=== PATIENT | male | born 1955 | race Caucasian/White ===

== ENCOUNTER 2019-01-17 09:26 | Inpatient (IN) | payer MEDICARE, OTHER ==
[~2019-01-17] VITALS: Ht 182.9 cm; Wt 62.7 kg
[2019-01-17] MEDS ORDERED: LOPERAMIDE 2 MG (IMODIUM) TABLET PO PRN (10:45)
[2019-01-17] MEDS ORDERED: ONDANSETRON 4 MG (ZOFRAN) ORAL DISSOLVE TAB PO PRN (10:45)
[2019-01-17] MEDS ORDERED: diphenhydrAMINE 25 MG TAB (BENADRYL) PO PRN (10:45)
[2019-01-17] MEDS ORDERED: BISACODYL 10 MG SUPP (DULCOLAX) PR PRN (10:45)
[2019-01-17] MEDS ORDERED: DOCUSATE SODIUM 100 MG (COLACE) CAP PO PRN (10:45)
[2019-01-17] MEDS ORDERED: HYDROcodone/APAP 5 MG/325 MG (LORTAB) TAB PO PRN (10:45)
[2019-01-17] MEDS ORDERED: ALPRAZolam 0.25 MG (XANAX) TAB PO PRN (10:45)
[2019-01-17] MEDS ORDERED: guaiFENesin/CODEINE (ROBITUSSIN AC) 10ML UDC PO PRN (10:45)
[2019-01-17] MEDS ORDERED: LACTULOSE SYRUP 10GM/15ML (ENULOSE) 30ML UDC PO PRN (10:45)
[2019-01-17] MEDS ORDERED: FLEET ENEMA ADULT 1 EA BTL PR PRN (10:45)
[2019-01-17] MEDS ORDERED: CALCIUM CARBONATE 500 MG (TUMS) TAB.CHEW PO PRN (10:45)
[2019-01-17] MEDS ORDERED: AMIT100T2 PO (12:58)
[2019-01-17] MEDS ORDERED: MULT1TAB69 PO (12:58)
[2019-01-17] MEDS ORDERED: CARB1TAB19 PO (12:58)
[2019-01-17] MEDS ORDERED: ARMO250T6 PO (12:58)
[2019-01-17] MEDS ORDERED: ASPI-992 PO (12:58)
[2019-01-17] MEDS ORDERED: DOCU-143 PO (12:58)
[2019-01-17] MEDS ORDERED: HYDR-3812 PO (12:58)
[2019-01-17] MEDS ORDERED: BACL10TA PO (12:58)
[2019-01-17] MEDS ORDERED: CARI350T27 PO (12:58)
--- NOTE | 2019-01-17 13:55 | NUR ---
Pt admitted to room 229-1, with an admitting diagnosis of S/P Spinal fusion, Parkinson's Dx, from [facility], via w/c, accompanied by girlfriend, sister, & brother in law. SARAH CARABALLO introduced to surroundings, call light, bed controls, phone, TV, temperature control, lights, meal times, smoking policy, visitor policy, side rail policy, bathrooms and showers. Patient Rights given to patient in the handbook. SARAH CARABALLO acknowledges understanding that [facility] is not responsible for the loss or damage to any personal effects or valuables that are kept in the patients posession during their hospitalization. The following Patient Care Plans were discussed with the pt: Discharge Planning, Self Care Deficit, Impaired Mobility, Potential for fall/injury. SARAH CARABALLO acknowledges understanding of Interdisciplinary Patient Education. Patient and/or family were informed about the Rapid Response Team and its purpose. Patient received Patient Rights Booklet, which includes Privacy Act Statement and Data Collection Information Summary. Pt taken immediately to gym by PT for evaluation.
[2019-01-17 14:28] VITALS: BP 162/84
--- NOTE | 2019-01-17 14:43 | Occupational Therapy Eval ---
OT Evaluation-General/PLF Medical Diagnosis Admission Date Jan 17, 2019 at 13:55 Medical Diagnosis: s/p L5-S1 AP fusion with revision hardware Onset Date: Jan 13, 2019 Therapy Diagnosis Therapy Diagnosis: Impaired ADLs and functional mobility. Precautions Precautions/Isolations: Standard Precautions Referral Physician: Nat Fernández Reason: Activity Tolerance, Self Care, Evaluation/Treatment, Strengthening/ROM Medical History Pertinent Medical History: Parkinson's Additional Medical History Pt's PMH includes the following: Carpal tunnel surgery, deep brain stimulator, prior cervical surgery Current History Pt has had back pain over the last couple of years, he trialled conservative tx with injections prior to electing to have surgery. Pt is to have back brace on when up. Reviewed History: Yes Social History Home: Single Level Current Living Status: Significant Other Entry Into Home: Stairs Without Railing Steps Into Home: 1 Steps Inside Home: 0 Pt currently live by himself but plans to stay with his girlfriend after discharge from rehab. His girlfriend lives in a one story house with a small step at entry. ADL-Prior Level of Function SCALE: Activities may be completed with or without assistive devices. 7-Dyvucxyfxg-spllmlp completes the activity by him/herself with no assistance from a helper. 5-Set-up or Clean-up Assistance-helper sets up or cleans up; patient completes activity. [place] assists only prior to or following the activity. 4-Supervision or Touching Assistance-helper provides verbal cues and/or touching/steadying and/or contact guard assistance as patient completes activity. Assistance may be provided throughout the activity or intermittently. 3-Partial/Moderate Assistance-helper does LESS THAN HALF the effort. [place] lifts, holds or supports trunk or limbs, but provides less than half the effort. 2-Substantial/Maximal Assistance-helper does MORE THAN HALF the effort. [place] lifts or holds trunk or limbs and provides more than half the effort. 5-Nlqraywix-zsibei does ALL the effort. Patient does none of the effort to complete the activity. Or, the assistance of 2 or more helpers is required for the patient to complete the activity. If activity was not attempted, code reason: 7-Patient Refused. 9-Not Applicable-not attempted and the patient did not perform the activity before the current illness, exacerbation or injury. 10-Not Attempted due to Environmental Limitations-(lack of equipment, weather restraints, etc.). 88-Not Attempted due to Medical Conditions or Safety Concerns. Self Care: Independent Functional Cognition: Independent DME/Equipment: Bath Bench, Tub/Shower DME/Equipment Comments walker OT Current Status Subjective Pt arrived at front of hospital, OT/PT assisted pt to rehab floor. Pt agreeable to OT evaluation followed by OT/PT cotreat. Pt's family and girlfriend present during session. Mental Status/Objective Patient Orientation: Person, Place, Time, Situation Attachments: Other-See Comments (back brace) Current Glasses/Contacts: Yes (reading) Hearing Aids: No Dentures/Partials: Yes Hand Dominance: Right Upper Extremity ROM WFL, pt able to flex BUE shoulders overhead and bend arms to touch back of head. Upper Extremity Coordination impaired finger to nose test, pt's RUE grossly intact, noted decreased co ordination LUE during test. Pt arm moving between top of head and chin height when bringing finger towards nose with left hand. Upper Extremity Sensation pt reported no changes in sensation. Upper Extremity Strength 4+/5 MMT BUE Edema: none noted ADL-Treatment Eating (QC): 7 Oral Hygiene (QC): 7 Shower/Bathe Self (QC): 7 Upper Body Dressing (QC): 7 Lower Body Dressing (QC): 7 On/Off Footwear (QC): 7 Toileting Hygiene (QC): 7 Toilet Transfer (QC): 7 Other Treatments Pt able to provide information about PLOF and home set up. OT/PT cotreat secondary to increased medical complexity and skill of 2 disciplines required, that an aide is unable to perform. PT focused on mobility, LB placement and overall gross movements while OT focused on hand placement and cueing during task. Pt in therapy gym, performing functional mobility to his room using FWW as OT performed w/c follow while cueing pt for safety and UE placement. Pt then transferred to the bed, and transferred supine, then transferred back to sit EOB. Pt focused on LE during transfers while OT focused on cueing for hand placement and safety with task. At 1430, OT Digna took over OT session (with focus on ADLs) continuing cotreat with PT. Pt seated safely on EOB with PT and OT at end of session. Education OT Patient Education: Correct positioning, Energy conservation, Exercise program, Modified ADL techniques, Progress toward Goal/Update tx plan, Purpose of tx/functional activities, Safety issues, Transfer techniques Teaching Recipient: Patient Teaching Methods: Demonstration, Discussion Response to Teaching: Verbalize Understanding OT Short Term Goals Short Term Goals Time Frame: Jan 31, 2019 Upper Body Dressing(FIM): 3 Lower Body Dressing(FIM): 3 Toileting(FIM): 3 Toilet/Commode Transfer(FIM): 3 1=Demonstrate adherence to instructed precautions during ADL tasks. 2=Patient will verbalize/demonstrate understanding of assistive devices/modifica tions for ADL. 3=Patient will improve strength/tolerance for activity to enable patient to perform ADL's. OT Correction Goals Plastic Injection Mold Maker Goals Time Frame: Feb 14, 2019 Eating (QC): 6 Oral Hygiene (QC): 6 Shower/Bathe Self (QC): 5 Upper Body Dressing (QC): 6 Lower Body Dressing (QC): 6 On/Off Footwear (QC): 6 Toileting Hygiene (QC): 6 Toilet/Commode Transfer (QC): 6 Additional Goals: 1-Demonstrate ADL Tasks, 2-Verbalize Understanding, 3- ImproveStrength/Oniel 1=Demonstrate adherence to instructed precautions during ADL tasks. 2=Patient will verbalize/demonstrate understanding of assistive devices/modifications for ADL. 3=Patient will improve strength/tolerance for activity to enable patient to perform ADL's. OT Education/Plan Problem List/Assessment Assessment: Decreased Activ Tolerance, Impaired Coordination, Impaired I ADL's, Impaired Self-Care Skills Discharge Recommendations Plan/Recommendations: Continue POC Treatment Plan/Plan of Care Treatment,Training & Education: Yes Patient would benefit from OT for education, treatment and training to promote independence in ADL's, mobility, safety and/or upper extremity function for ADL's. Plan of Care: ADL Retraining, Caregiver Training, Functional Mobility, Group Exercise/Act as Ind, UE Neuromus Re-Ed/Coord Treatment Duration: Feb 14, 2019 Frequency: At least 5 of 7 days/Wk (IRF) Estimated Hrs Per Day: 1.5 hours per day Agreement: Yes Rehab Potential: Fair Time/GCodes Start Time: 13:50 ([id number]) Stop Time: 14:30 ([id number]) Total Time Billed (hr/min): 30 Billed Treatment Time 9189-5121 OT Eval [id number] Co-tx with PT 1, EVM (10 mins), FA (20mins) LESLI BABCOCK OT Jan 17, 2019 14:43 POS
[2019-01-17] MEDS ORDERED: ARMODAFINIL 250 MG PO PRN (15:00)
[2019-01-17] MEDS ORDERED: LEVODOPA PO SCH (15:00)
[2019-01-17] MEDS ORDERED: CARISOPRODOL 350 MG (SOMA) TAB PO PRN (15:00)
[2019-01-17] MEDS ORDERED: NON-FORMULARY MEDICATION 1 EA EA (Hydrocodone/Acetaminophen (Hydrocodone-Acetamin 5-325 mg PO PRN (15:00)
[2019-01-17] MEDS ORDERED: CARBIDOPA PO SCH (15:00)
[2019-01-17] MEDS ORDERED: BACLOFEN 10 MG (LIORESAL) TAB PO PRN (15:00)
[2019-01-17] MEDS ORDERED: [UNRECOGNIZED DRUG - OTHER] PO SCH (15:00)
[2019-01-17] MEDS ORDERED: NON-FORMULARY MEDICATION 1 EA EA (Carisoprodol 350 MG) PO PRN (15:00)
[2019-01-17] MEDS ORDERED: ACETAMINOPHEN 325 MG TABLET PO PRN (15:15)
--- NOTE | 2019-01-17 15:25 | NUR ---
UPDATED MED REC WITH DISCHARGE INSTRUCTIONS FROM [facility]. THERE IS NO EXT MED HX OR ANY RESULTS WHEN I SEARCHED FOR THE PATIENTS FILL HISTORY IN [facility]. I ENTERED THE MEDS JUST THEY WERE REPORTED FROM [facility]. NOTE I REMOVED THE TWO NEW MEDICATIONS STARTED AT [facility] FROM THE MED REC AT THIS TIME FOR PROPER DISCHARGE TO HOME MEDICATIONS. NEW MEDS STARTED WERE BACLOFEN 10MG Q8H PRN AND HYDROCODONE 5-325MG 1-2 Q4H PRN.
[2019-01-17] MEDS: SINEMET 25/100 (CARBIDOPA/LEVODOPA) TAB PO SCH ×3 (15:38→20:41)
--- NOTE | 2019-01-17 15:47 | Occupational Ther Daily Note ---
OT Current Status-Daily Note Subjective Pt seen on EOB with PT, pt does not rate pain but states "some" pain in back. pt agreeable to OT/ PT co-treatment. Co-treat rendered due to pt's decreased functional mobility and balance and overall complexity. OT focused on ADL function, fine motor movements, and direction following while PT focused on sitting balance and gross motor movement. ADL-Treatment Therapy Code Descriptions/Definitions Functional [place] Measure: 0=Not Assessed/NA 4=Minimal Assistance 1=Total Assistance 5=Supervision or Setup 2=Maximal Assistance 6=Modified [place] 3=Moderate Assistance 7=Complete IndependenceSCALE: Activities may be completed with or without assistive devices. 1-Pvllemyivk-aiwyzbk completes the activity by him/herself with no assistance from a helper. 5-Set-up or Clean-up Assistance-helper sets up or cleans up; patient completes activity. [place] assists only prior to or following the activity. 4-Supervision or Touching Assistance-helper provides verbal cues and/or touching/steadying and/or contact guard assistance as patient completes activity. Assistance may be provided throughout the activity or intermittently. 3-Partial/Moderate Assistance-helper does LESS THAN HALF the effort. [place] lifts, holds or supports trunk or limbs, but provides less than half the effort. 2-Substantial/Maximal Assistance-helper does MORE THAN HALF the effort. [place] lifts or holds trunk or limbs and provides more than half the effort. 8-Dkpdsoqrr-mkxuub does ALL the effort. Patient does none of the effort to complete the activity. Or, the assistance of 2 or more helpers is required for the patient to complete the activity. If activity was not attempted, code reason: 7-Patient Refused. 9-Not Applicable-not attempted and the patient did not perform the activity before the current illness, exacerbation or injury. 10-Not Attempted due to Environmental Limitations-(lack of equipment, weather restraints, etc.). 88-Not Attempted due to Medical Conditions or Safety Concerns. Eating (QC): 3 (Requires assist gathering cup and stabilizing to drink. Requires assist maintaining upright position) Oral Hygiene (QC): 4 (Requires CGA while seated EOB, pt completes toothpaste donning with cues for finger placement.) Shower/Bathe Self (QC): 3 (Assist with stabilization EOB, completes all areas other than bottoms of feet and back. CGA in stance.) Upper Body Dressing (QC): 2 (s/u, pt requires cues for initiation/ termination of task. Pt requires max A for back brace doff/ donning- increased cueing increases pt's processing time. Pt requires CGA-mod A for maintaining upright position thorughout EOB UB dressing.) Lower Body Dressing (QC): 3 (Pt able to thread BLE with min A for adjusting clothing over foot.) Toileting Hygiene (QC): 4 (CGA in stance.) Toilet Transfer (QC): 4 (CGA to standard toilet. ) on/off footwear : 2 max A Other Treatment Pt completes all ADLs in room. Pt sits EOB, requires max cues for sitting upright and mod A for stabilization upright due to decreased endurance/ fatigue. Pt's mother and significant other present. Pt's significant other provides PLOF- states he requires a clean slate/ starts over with dressing tasks when becomes "stuck," and that pt has decreased sensations to all fingertips making fine motor tasks difficult. Pt completes shirt doff/ donning, shirt wadded up and requires restart with cues. Pt able to complete ADL tasks with concise/ repeated cueing. Pt's mother and significant other provides additional cues to OT/ PT, pt demonstrates delays/ confusion of tasks at times, requiring additional cues for termination and initiation of tasks. Pt requires rest/ drink breaks throughout session. Pt returns to bed, completes log roll with assist x2 for positioning. Pt's family's questions answered of ARU expectations. Pt's family states need for bed alarm due to pt's cognition at previous facility. Pt's nurse notified of pt's family request. Pt left with significant other, mother, and nursing at end of session, all needs met, call light in reach. Education OT Patient Education: Correct positioning, Instructions don/doff splint/brace, Modified ADL techniques, Purpose of tx/functional activities, Rehab process, Transfer techniques Teaching Recipient: Patient, Family, Significant Other Teaching Methods: Demonstration, Discussion Response to Teaching: Verbalize Understanding, Return Demonstration OT Short Term Goals Short Term Goals Time Frame: Jan 31, 2019 Upper Body Dressing(FIM): 3 Lower Body Dressing(FIM): 3 Toileting(FIM): 3 Toilet/Commode Transfer(FIM): 3 1=Demonstrate adherence to instructed precautions during ADL tasks. 2=Patient will verbalize/demonstrate understanding of assistive devices/modifications for ADL. 3=Patient will improve strength/tolerance for activity to enable patient to perform ADL's. OT Element Winding Machine Tender Goals Mcfp Goals Time Frame: Feb 14, 2019 Eating (QC): 6 Oral Hygiene (QC): 6 Shower/Bathe Self (QC): 5 Upper Body Dressing (QC): 6 Lower Body Dressing (QC): 6 On/Off Footwear (QC): 6 Toileting Hygiene (QC): 6 Toilet/Commode Transfer (QC): 6 Additional Goals: 1-Demonstrate ADL Tasks, 2-Verbalize Understanding, 3- ImproveStrength/Oniel 1=Demonstrate adherence to instructed precautions during ADL tasks. 2=Patient will verbalize/demonstrate understanding of assistive devices/modifications for ADL. 3=Patient will improve strength/tolerance for activity to enable patient to perform ADL's. OT Education/Plan Problem List/Assessment Assessment: Decreased Activ Tolerance, Decreased Safety Aware, Decreased UE Strength Discharge Recommendations Plan/Recommendations: Continue POC Treatment Plan/Plan of Care Treatment,Training & Education: Yes Patient would benefit from OT for education, treatment and training to promote independence in ADL's, mobility, safety and/or upper extremity function for ADL's. Plan of Care: ADL Retraining, Caregiver Training, Functional Mobility, Group Exercise/Act as Ind, UE Neuromus Re-Ed/Coord Treatment Duration: Feb 14, 2019 Frequency: At least 5 of 7 days/Wk (IRF) Estimated Hrs Per Day: 1.5 hours per day Agreement: Yes Rehab Potential: Fair Time/GCodes Start Time: 14:30 Stop Time: 15:35 Total Time Billed (hr/min): 65 Billed Treatment Time 1, ADL 4 (65) OT/ PT cotreatment throughout session. Co-treat rendered due to pt's decreased functional mobility and balance and overall complexity. OT focused on ADL fu nction, fine motor movements, and direction following while PT focused on sitting balance and gross motor movement. SANYA SMALL OTR Jan 17, 2019 15:47 POS
--- NOTE | 2019-01-17 15:51 | Physical Therapy Evaluation ---
PT Evaluation-General Medical Diagnosis Admission Date Jan 17, 2019 at 13:55 Medical Diagnosis: s/p L5-S1 AP fusion with revision hardware Onset Date: Jan 13, 2019 Therapy Diagnosis Therapy Diagnosis: impaired:coordination, strength, balance, activity ana Precautions Precautions/Isolations: Fall Prevention, Standard Precautions Weight Bear Status Right Lower Extremity: Right Full Weight Bearing Left Lower Extremity: Left Full Weight Bearing Referral Physician: Nat Reason for Referral: Evaluation/Treatment Medical History Pertinent Medical History: Parkinson's Additional Medical History Carpal tunnel surgery, deep brain stimulator, prior cervical surgery Reviewed History: Yes Social History Home: Single Level Current Living Status: Significant Other Entry Into Home: Stairs Without Railing PT Steps Into Home: 1 PT Steps Inside Home: 0 Prior Prior Level of Function SCALE: Activities may be completed with or without assistive devices. 3-Ahqihlkojp-oogfnka completes the activity by him/herself with no assistance from a helper. 5-Set-up or Clean-up Assistance-helper sets up or cleans up; patient completes activity. Elwood assists only prior to or following the activity. 4-Supervision or Touching Assistance-helper provides verbal cues and/or touching/steadying and/or contact guard assistance as patient completes activity. Assistance may be provided throughout the activity or intermittently. 3-Partial/Moderate Assistance-helper does LESS THAN HALF the effort. Elwood lifts, holds or supports trunk or limbs, but provides less than half the effort. 2-Substantial/Maximal Assistance-helper does MORE THAN HALF the effort. Elwood lifts or holds trunk or limbs and provides more than half the effort. 7-Gqvofwqiq-iwbqls does ALL the effort. Patient does none of the effort to complete the activity. Or, the assistance of 2 or more helpers is required for the patient to complete the activity. If activity was not attempted, code reason: 7-Patient Refused. 9-Not Applicable-not attempted and the patient did not perform the activity before the current illness, exacerbation or injury. 10-Not Attempted due to Environmental Limitations-(lack of equipment, weather restraints, etc.). 88-Not Attempted due to Medical Conditions or Safety Concerns. Bed Mobility: 6 Transfers (B,C,W/C): 6 Gait: 6 Stairs: 6 Indoor Mobility (Ambulation): Independent Stairs: Independent Prior Devices Use: Walker per pt family: pt was indep with everything prior to the back pain onset. following the onset of pain the pt required help to get up and out of bed and get started with motions but the pt was indep with all mobility and transfers as he "got loose". Pt would use a FWW early in the day and then also stop using the FWW as he was up for a little bit. According to family, pt is a poor historian. PLOF gathered from family information. PT Evaluation-Current Subjective pt received from car and agrees to therapy. pt reports 7/10 pain in his back. This will be a co-treat with OT secondary to pt's need for 2 skilled therapist to coordinate UE & LE functional activities and to maintain balance while performing functional activities and mobility. pt in bed post-tx with call light, room phone, tray table in reach with RN present and all needs met. Pt has sister and brother in-law and his girlfriend present for entire evaluation. Pt/Family Goals to get back home and do things on his own Objective Patient Orientation: Person, Unable to Assess, Place Problem Solving: Poor ROM/Strength ROM Lower Extremities WFL Strength Lower Extremities B/L hip flexion 5/5 B/L knee flexion 4/5 R knee extension 4/5 L knee extension 4-/5 Pt has difficulty following directions for accurate MMT Integumentary/Posture Integumentary see nursing notes Bowel Incontinence: No Bladder Incontinence: Yes Neuromuscular (Tone, Coordination, Reflexes) Slight increase in tone in B/L LE in hip flexors, knee flexors. Sensory Vision: Wears Glasses (reading glasses) Hearing: Functional Hand Dominance: Right Sensation Right Upper Extremit: Impaired Sensation Left Upper Extremity: Impaired Sensation Up. Extremities pt girlfriend reports pt lost sensation in B/L finger tips Sensation Right Lower Extremit: Intact Sensation Left Lower Extremity: Intact Transfers Roll Left to Right (QC): 3 (Eboni) Sit to Lying (QC): 2 (modA) Lying to Sitting/Side of Bed(Q: 3 (max-modA) Sit to Stand (QC): 3 (Eboni) Chair/Fcp-ym-Djsmj Xfer(QC): 3 (Eboni) Car Transfer (QC): 3 (Eboni) car transfer required extra time for instruction and positioning. sit<->supine required extra time for instruction of log roll and assist which pt has difficulty following sequence Gait Does the Patient Walk?: Yes Distance: 8=839-92 ft Walk 10 feet (QC): 3 (modA) Walk 50 ft with 2 Turns(QC): 3 (modA) Walk 150 ft (QC): 88 Walking 10ft/uneven surface-QC: 3 (modA) Distance: 120' Gait Assistive Device: FWW Comments/Gait Description pt has very narrow JACKIE and demonstrates a scissor gait with multiple large cross overs. Pt has very little awareness for safety while ambulating allowing the FWW to get too far infront of him, not using FWW to turn, and letting go of FWW all together. Pt has a posterior lean with multiple large LOB. pt lacks heel contact on the RLE and lacks heel first contact on the LLE. Pt lacks TKE in the RLE. Wheelchair Training Does the Pt Use a Wheelchair?: No Stairs 1 Step (curb) (QC): 3 (modA) 4 Steps (QC): 88 Assistive Device: Walker 12 Steps (QC): 88 pt very unstable and unsafe and unaware of safety problems Balance Sitting Static: Fair Sitting Dynamic: Fair Standing Static: Poor Standing Dynamic: Poor Picking up an Object (QC): 3 (modA) Treatment pt performed transfer training, toilet transfer, balance training, bed mobility training, skilled ambulation training, functional LE strengthening (seated 10reps: LAQs, hip flexion), and education PT assisted in balance control while OT accessed ADL's and dressing and PT assisted with LE placement for transfer training and ambulation. OT assisted balance control and UE positioning for transfers and bed mobility. Assessment/Needs pt has very impaired coordination B/L UE & LE from testing today. Pt has poor balance and poor awareness of position as pt slouches down in the bed with a high amount of posterior lean. Pt has little awareness of these impairments. Pt is impulsive and tends to move before he is in a correct position and does not maintain a safe position for balance and mobility. Pt is a high fall risk at this time. Pt family notes that the mental fog he is in is new and they believe is related to the medication from his recent surgery. Rehab Potential: Guarded PT Short Term Goals Short Term Goals Time Frame: Jan 24, 2019 Gait Distance Comment: 250' Gait Assistive Device: FWW (CGA) PT Grain Wafer Machine Operator Goals Grain Wafer Machine Operator Goals PT Grain Wafer Machine Operator Goals Time Frame: Feb 07, 2019 Sit to Lying (QC): 4 Lying-Sitting on Side/Bed(QC): 4 Sit to Stand (QC): 4 Roll Left to Right (QC): 4 Chair/Cvs-ke-Fqewr Xfer(QC): 4 Car Transfer (QC): 4 Does the Patient Walk: Yes Distance: 350' Walk 10 feet (QC): 4 Walk 10ft-Uneven Surface(QC): 4 Walk 50ft with 2 Turns (QC): 4 Walk 150 ft (QC): 4 Gait Assistive Device: FWW 1 Step (curb) (QC): 4 4 Steps (QC): 4 Picking up an Object (QC): 4 (CGA) PT Plan Problem List Problem List: Activity Tolerance, Functional Strength, Safety, Balance, Gait, Transfer, Bed Mobility, ROM Treatment/Plan Treatment Plan: Continue Plan of Care Treatment Plan: Bed Mobility, Concurrent Therapy, Education, Functional Activity Oniel, Functional Strength, Group Therapy, Gait, Safety, Therapeutic Exercise, Transfers Treatment Duration: Feb 07, 2019 Frequency: At least 5 of 7 days/Wk (IRF) Estimated Hrs Per Day: 1.5 hours per day Patient and/or Family Agrees t: Yes Safety Risks/Education Patient Education: Gait Training, Transfer Techniques, Steps, Reviewed Precautions, Correct Positioning, Reviewed Don/Doff Brace, Safety Issues Teaching Recipient: Patient, Family Teaching Methods: Demonstration, Discussion Response to Teaching: Reinforcement Needed Discharge Recommendations Plan pt will perform bed mobility training, transfer training, skilled ambulation training, balance training, functional LE strengthening/endurance exercises, and education Therapy Discharge Recommendati: Other, See Comments (home with girlfriend) Time/GCodes Time In: 1400 Time Out: 1530 Total Billed Treatment Time: 90 Total Billed Treatment [id number] was PT eval [id number] was co-treat with OT. PT assisted balance while OT accessed ADL's/self care/dressing. OT assisted balance while PT accessed mobility/transfers/ambulation 1 visit EVM 10' (1) EX 20' (1) GT 15' (1) FA 45' (3) MARY ALEXIS PT Jan 17, 2019 15:51 POS
[2019-01-17 16:00] VITALS: BP 137/89
[2019-01-17] MEDS: HYDROcodone/APAP 5 MG/325 MG (LORTAB) TAB PO PRN (16:00)
--- NOTE | 2019-01-17 16:05 | ST Cognitive Linguistic Eval ---
Speech Evaluation-General Medical Diagnosis s/p L5-S1 AP fusion with revision hardware Onset Date: Jan 13, 2019 Therapy Diagnosis Therapy Diagnosis: Cognitive-communication Referral Referring Physician: Dr. Johns Medical History Pertinent Medical History: Parkinson's Reviewed History: Yes Social History Current Living Status: Significant Other Speech PLF-Current Status Prior Level of Function Patient lived at home with his significant other where he received assistance as needed. Subjective Patient was pleasant and cooperative with the cognitive assessment. Language Eval: Auditory Comprehends Simple Yes/No Ques: Functional Indent/Objects Multiple Parra: Functional Ident/Pics in Multiple Parra: Functional Follows 1-Step Commands: Mild Follows Complex Directions: Moderate Follows General Conversations: Mild Language Eval: Verbal Language Completes Spontaneous Greeting: Functional Produces Auto, Serial Info: Functional Imitates Simple Words/Phrases: Mild Word Finding: Mild Requests Basic Needs: Functional States Basic Personal Info: Functional Expresses Complex Ideas: Moderate Objective Cognitive Domain Attention: WNL Memory: Moderate Problem Solving: Mild Executive Functions: Moderate Visuospatial Skills: Moderate Composite Severity Rating: Moderate Clock Drawing Severity Rating: Moderate Objective Formal/Standardized Tests [facility] Status ([facility]) Results 11/30, Moderate dementia range of function Oral Motor/Speech Production Patient exhibits reduced rate of speech, intelligibility is grossly within normal range of function Impression The patient is a pleasant 63 year old male who was admitted to the ARU s/p spinal surgery. Patient also has a Parkinson's diagnosis. The patient was given the SLUMS at bedside with a score of 11/30 obtained. This score falls in the moderately low range of cognitive level of function. The patient's family reports his cognitive function has been off since his surgery. Patient will receive skilled ST services for cognitive function with focus on improving safety awareness and independence. Speech Patient Assess Expression of Ideas/Wants: Frequently (2) Understanding Verbal Content: Sometimes Understands(2) Brief Interview-Mental Status: Yes Repetition of Three Words: One (1) Temporal Orientation: Year: Correct (3) Temporal Orientation: Month: Accurate within 5 days(2) Temporal Orientation: Day: Correct (1) Recall : Wear to say "Sock": No, could not recall (0) Recall : Color: No, could not recall (0) Recall : Bed: No, could not recall (0) Memory/Recall Ability: Current season, That he or she is in a hsp/hsp unit Speech Short Term Goals Short Term Goals Short Term Goals 1) The patient will complete memory tasks related to his daily needs at 90% or greater given minimal cues. 2) The patient will complete problem solving tasks related to his daily needs at 90% or greater given minimal cues. 3) The patient will complete safety awareness tasks related to his daily needs at 90% or greater given minimal cues. Speech Site Safety Representative Goals Retirement Goals Patient will improve cognitive-communication necessary for safety and daily living tasks with minimal assist. Speech-Plan Patient/Family Goals Patient/Family Goals: The patient plans on returning home with his significant other post rehab. Treatment Plan Speech Therapy Treatment Plan: Continue Plan of Care Patient will receive skilled ST services for cognitive function. Treatment Duration: Jan 29, 2019 Frequency: 5 times per week Estimated Hrs Per Day: .5 hour per day Rehab Potential: Fair Barriers to Learning: Patient has moderate deficits in cognitive function Pt/Family Agrees to Plan: Yes Safety Risks/Education Teaching Recipient: Patient, Family, Significant Other Teaching Methods: Discussion Response to Teaching: Verbalize Understanding, Reinforcement Needed Education Topics Provided: Safety within his room and communication of wants/needs. Time Speech Therapy Time In: 15:45 Speech Therapy Time Out: 16:00 Total Billed Time: 15 Billed Treatment Time 1, SPSNDCOMP YVON Medel Jan 17, 2019 16:05 POS
--- NOTE | 2019-01-17 16:31 | PM&R Post Admission Assessment ---
PM&R HP Date of Visit: Jan 17, 2019 Time of Visit: 16:00 History of Present Illness CC: Debility following lumbar spine surgery POD # 3 with history of severe Parkinson's with brain stimulator placement 14 years ago. HPI: This is a 63yoWM pt who previously saw Dr. Maximilian Dan who presented to inpatient rehab after severe debility with urinary retention and other Parkinson's related complications following an extensive lumbar spine surgery by Dr. Stoll POD # 3. He recently stopped smoking and is ordinarily able to navigate at home, does have a girlfriend and she is needing the pt to become more independent prior to returning home in order to become successful. He does have a high risk for falls anyways from Parkinson's and that definitely needs to be avoided considering the extensiveness of the lumbar spine surgery. His bowels are moving on his scheduled laxatives and he is beginning to eat more and urinary retention will be managed with in and out caths and we will be consulting urology. Patient appears to have early signs of cognitive decline from Parkinson's and given the fact his SLUMS score is 11/30 will need to monitor this and confirm this after he is further out from surgery and narcotic exposure to see if it improves. Past Zckvgan-Eghxci-Rrytoa Hx Past Med/Social Hx: Reviewed Nursing Past Med/Soc Hx, Reviewed and Corrections made Patient Social History Marrital Status: cohabiting Employed/Student: unemployed Smoking Status: Current Everyday Smoker Recent Foreign Travel: No Contact w/other who traveled: No Recent Infectious Disease Expo: No Past Medical History Surgeries: Orthopedic Brain stimulator 14 yrs ago Cardiac: High Cholesterol Neurological: Parkinson's Disease Gastrointestinal: Gastroesophageal Reflux, Pancreatitis Musculoskeletal: Arthritis, Chronic Back Pain Prior Level of Function Bed Mobility: 6 Transfers: 6 Gait: 6 Stairs: 6 Indoor Mobility (Ambulation): Independent Stairs: Independent Prior Devices Use: Walker Self Care: Independent Functional Cognition: Independent Current Level of Fuctioning Roll Left to Right: 3 (Eboni) Sit to Lyin (modA) Lying to Sitting/Side of Bed: 2 (max-modA) Sit to Stand: 3 (Eboni) Chair/Boa-kp-Fwldo Xfer: 3 (Eboni) Car Transfer: 3 (Eboni) Does the Patient Walk: Yes Distance: 2=824-49 ft Walk 10 feet: 2 (modA) Walk 50 ft with 2 Turns: 2 (modA) Walk 150 ft: 88 Walking 10ft on uneven surface: 2 (modA) Gait Assistive Device: FWW Does the Pt Use a Wheelchair: No 1 Step (curb): 2 (modA) 4 Steps: 88 12 Steps: 88 Picking up an Object: 2 (modA) Eatin (Requires assist gathering cup and stabilizing to drink. Requires assist maintaining upright position) Oral Hygiene: 4 (Requires CGA while seated EOB, pt completes toothpaste donning with cues for finger placement.) Shower/Bathe Self: 3 (Assist with stabilization EOB, completes all areas other than bottoms of feet and back. CGA in stance.) Upper Body Dressin (s/u, pt requires cues for initiation/ termination of task. Pt requires max A for back brace doff/ donning- increased cueing increases pt's processing time. Pt requires CGA-mod A for maintaining upright position thorughout EOB UB dressing.) Lower Body Dressin (Pt able to thread BLE with min A for adjusting clothing over foot.) On/Off Footwear: 7 Toileting Hygiene: 4 (CGA in stance.) Toilet Transfer: 4 (CGA to standard toilet. ) PM&R Allergy/Meds/Data Review Allergies Coded Allergies: No Known Drug Allergies (Unverified , 01/17/19) Home Medications Scheduled Amitriptyline HCl (Amitriptyline HCl), 100 MG PO HS, (Reported) Carbidopa/Levodopa (Carbidopa-Levodopa 25-100 Tab), 0.5 TAB PO Q3H, (Reported) Docusate Sodium (Colace), 100 MG PO DAILY, (Reported) Multivitamin (Multivitamins), 1 TAB PO DAILY, (Reported) Scheduled PRN Armodafinil (Armodafinil), 250 MG PO DAILY PRN for DROWSINESS, (Reported) Aspirin/Acetaminophen/Caffeine (Excedrin Extra Strength Caplet), 1 TAB PO Q6H PRN for PAIN-MILD (1-4), (Reported) Carisoprodol (Carisoprodol), 350 MG PO Q6H PRN for MUSCLE SPASMS, (Reported) Current Medications Current Medications Reviewed Review of Systems Constitutional: see HPI, dizziness, malaise, weakness EENTM: no symptoms reported Respiratory: no symptoms reported Cardiovascular: no symptoms reported Gastrointestinal: no symptoms reported Genitourinary: other (retention) Musculoskeletal: back pain Skin: no symptoms reported Psychiatric/Neurological: Anxiety, Depressed All Other Systems Reviewed Negative Unless Noted: Yes Physical Exam Physical Exam Vital Signs Vital Signs - First Documented 01/17/19 14:28 Temp 37.6 Pulse 101 Resp 16 B/P (MAP) 162/84 Pulse Ox 97 O2 Delivery Room Air Capillary Refill : Height, Weight, BMI Height: '" Weight: lbs. oz. kg; 19.84 BMI Method: General Appearance: No Apparent Distress, WD/WN, Chronically ill, Thin Eyes: Bilateral Eye Normal Inspection, Bilateral Eye PERRL HEENT: PERRL/EOMI, Normal ENT Inspection, Pharynx Normal Neck: Full Range of Motion, Normal Inspection, Non Tender, Supple, Carotid Bruit Respiratory: Chest Non Tender, Lungs Clear, Normal Breath Sounds, No Accessory Muscle Use, No Respiratory Distress Cardiovascular: Regular Rate, Rhythm, No Edema, No Gallop, No JVD, No Murmur, Normal Peripheral Pulses Gastrointestinal: Normal Bowel Sounds, No Organomegaly, No Pulsatile Mass, Non Tender, Soft Back: Decreased Range of Motion Extremity: Normal Capillary Refill, Normal Inspection, Normal Range of Motion (rigidity noted all extremities), Non Tender, No Calf Tenderness, No Pedal Edema Neurologic/Psychiatric: Alert, Oriented x3, No Motor/Sensory Deficits, senior linux engineer II- XII Norm as Tested, Depressed Affect, Motor Weakness (generalized) Skin: Normal Color, Warm/Dry Lymphatic: No Adenopathy PM&R Medical Assessment & Plan REHAB/MEDICAL ASSESSMENT AND PLAN: REHAB IMPAIRMENT GROUP: Lumbar spondylosis ETIOLOGIC DIAGNOSIS: Lumbar spine surgery due to neurological deficit, severe Parkinson's with history of brain stimulator The comorbidities that impact the patients function and/or functional outcome by: Severe Parkinson's with brain stimulator 14 years ago current smoking with cognitive deficit noted REHAB PLAN: The patient is being admitted to our comprehensive inpatient rehabilitation facility and can tolerate the intensity of service consisting of at least: 180 minutes of therapy a day, 5 out of 7 days a week Rehab treatment will consist of: Physical therapy will focus on ambulation with assistive devices for fall risk prevention from surgery deficit and severe Parkinson's and occupational therapy will focus on regaining independent ADLs and fall risk prevention, speech therapy work on cognition improvement in memory The patient/family has a good understanding of our discharge process and will benefit from an interdisciplinary inpatient rehabilitation program. The patient has potential to make improvement and is in need of at least two of the following multidisciplinary therapies including but not limited to physical, occupational, speech, and prosthetics and orthotics. Additionally the patient will need services from respiratory, nutritional services, wound care, psychology, etc. (Customize this to each patient). Given the patients complex condition and risk of further medical complications, rehabilitation services cannot be safely or effectively provided at a lower level of care such as a [place] [facility] facility. BARRIERS TO DISCHARGE: Ability to make decisions of his own and fall risk prevention ESTIMATED LOS: 7 days DISPOSITION: Home with admeasurer RELEVANT CHANGES SINCE PREADMISSION SCREENING: I have compared the patients medical and functional status at the time of the preadmission screening and there are: no changes PROGNOSIS: Good REHABILITATION GOALS: 1. Regain ability to take care of himself at home with ADLs and ambulation 2. Reside at home safely alone with admeasurer not available 3. Pain control All the above goals were reviewed with the patient and he/she is in agreement. By signing this document, I acknowledge that I have personally performed a full physical examination on this patient within 24 hours of admission to this inpatient rehabilitation facility and have determined the patient to be able to tolerate the above course of treatment at an intensive level for a reasonable period of time. I will be completing a detailed individualized Plan of Care for this patient by day #4 of the patients stay based upon the Preadmission Screen, the Post-Admission Evaluation, and the therapy evaluations. Admission Dx/Comorbidities: (1) Radiculopathy, lumbar region ICD Codes: M54.16 - Radiculopathy, lumbar region (2) Parkinsons ICD Codes: G20 - Parkinson's disease (3) Parkinson's disease with use of electrical brain stimulation ICD Codes: G20 - Parkinson's disease (4) COPD (chronic obstructive pulmonary disease) ICD Codes: J44.9 - Chronic obstructive pulmonary disease, unspecified (5) Smoker ICD Codes: F17.200 - Nicotine dependence, unspecified, uncomplicated (6) GERD (gastroesophageal reflux disease) ICD Codes: K21.9 - Gastro-esophageal reflux disease without esophagitis (7) Urinary retention ICD Codes: R33.9 - Retention of urine, unspecified (8) Constipation ICD Codes: K59.00 - Constipation, unspecified (9) Chronic pain ICD Codes: G89.29 - Other chronic pain (10) Cognitive deficit due to Parkinson's disease ICD Codes: F06.8 - Other specified mental disorders due to known physiological condition; G20 - Parkinson's disease (11) Risk for falls ICD Codes: Z91.81 - History of falling (12) Moderately thin body habitus in adult HARRISENMANUEL DO Jan 17, 2019 16:30 POS
--- NOTE | 2019-01-17 18:55 | NUR ---
Pt states that he has had his flu vaccine this year, that he, "gets it every year." Pt is unsure of pneumonia vaccine, states to ask his girlfriend tomorrow when she is here
--- NOTE | 2019-01-17 19:10 | NUR ---
Bedside report received from SHANTA ROJAS, assume care of pt
[2019-01-17] MEDS: AMITRIPTYLINE 50 MG (ELAVIL) TAB PO SCH (20:40)
--- NOTE | 2019-01-17 20:41 | NUR ---
pt refused Senokot & miralax, up with 1 person assist up & walker
--- NOTE | 2019-01-17 20:43 | NUR ---
Pt states that he is a DNR, when asking admission questions. Pt's sister states that they have talked about this, & he has told her this, over & over again." Notified Dr. Johns, & rec'd orders.
[2019-01-17] MEDS: POLYETHYLENE GLYCOL 17 GM (MIRALAX) PACK PO SCH (20:45)
[2019-01-17] MEDS: SENNA W/DOCUSATE (SENOKOT S) TABLET PO SCH (20:45)
[2019-01-17] MEDS ORDERED: NON-FORMULARY MEDICATION 1 EA EA (Amitriptyline HCl 100 MG) PO SCH (21:00)
--- NOTE | 2019-01-17 21:00 | NUR ---
pt states do not wake me if i am asleep for Sinemet tonight
[2019-01-18] MEDS: SINEMET 25/100 (CARBIDOPA/LEVODOPA) TAB PO SCH ×8 (00:05→21:05)
[2019-01-18] MEDS: HYDROcodone/APAP 5 MG/325 MG (LORTAB) TAB PO PRN ×3 (02:48→18:10)
--- NOTE | 2019-01-18 02:48 | NUR ---
c/o back pain level 7/10 on numeric scale, Lortab 5 2 tabs given
--- NOTE | 2019-01-18 03:30 | NUR ---
resting quietly in bed, pain level 0/10 flacc scale
[2019-01-18 05:32] VITALS: BP 131/84
[2019-01-18] MEDS: MULTIVIT W/MINERALS TAB (THERAGRAN M) PO SCH (06:18)
[2019-01-18 06:40] LABS: BASOPHILS % (AUTO) 0 % (0-10); EOSINOPHILS # (AUTO) 0.2 10^3/uL (0.0-0.3); EOSINOPHILS % (AUTO) 3 % (0-10); HEMATOCRIT 34 % (40-54); HEMOGLOBIN 11.1 G/DL (13.3-17.7); LYMPHOCYTES # (AUTO) 1.6 X 10^3 (1.0-4.0); LYMPHOCYTES % (AUTO) 26 % (12-44); MEAN CORPUSCULAR HEMOGLOBIN 32 PG (25-34); MEAN CORPUSCULAR HGB CONC 33 G/DL (32-36); MEAN CORPUSCULAR VOLUME 97 FL (80-99); MEAN PLATELET VOLUME 10.3 FL (7.4-10.4); MONOCYTES # (AUTO) 0.9 X 10^3 (0.0-1.0); MONOCYTES % (AUTO) 15 % (0-12); NEUTROPHILS # (AUTO) 3.6 X 10^3 (1.8-7.8); NEUTROPHILS % (AUTO) 56 % (42-75); PLATELET COUNT 233 10^3/uL (130-400); RED CELL DISTRIBUTION WIDTH 12.7 % (10.0-14.5); WHITE BLOOD COUNT 6.4 10^3/uL (4.3-11.0)
[2019-01-18 07:06] LABS: ALANINE AMINOTRANSFERASE 7 U/L (0-55); ALBUMIN 3.6 GM/DL (3.2-4.5); ALKALINE PHOSPHATASE 84 U/L (40-136); BILIRUBIN,TOTAL 0.6 MG/DL (0.1-1.0); BUN/CREATININE RATIO 20; CALCIUM 9.5 MG/DL (8.5-10.1); CARBON DIOXIDE 23 MMOL/L (21-32); CHLORIDE 99 MMOL/L (98-107); CREATININE SERUM 0.69 MG/DL (0.60-1.30); GFR ESTIMATED > 60; GLUCOSE 99 MG/DL (70-105); POTASSIUM 3.7 MMOL/L (3.6-5.0); SODIUM 133 MMOL/L (135-145); TOTAL PROTEIN 6.1 GM/DL (6.4-8.2)
--- NOTE | 2019-01-18 07:08 | NUR ---
bedside report given to OWEN ROJAS
[2019-01-18] MEDS: SENNA W/DOCUSATE (SENOKOT S) TABLET PO SCH ×2 (08:59→21:05)
[2019-01-18] MEDS: POLYETHYLENE GLYCOL 17 GM (MIRALAX) PACK PO SCH ×2 (09:00→21:05)
[2019-01-18] MEDS: DOCUSATE SODIUM 100 MG (COLACE) CAP PO SCH (09:03)
--- NOTE | 2019-01-18 12:03 | PM&R Progress Note ---
Subjective HPI/CC On Admission Date Seen by Provider: Jan 18, 2019 Time Seen by Provider: 11:30 Subjective/Events-last exam Slept well last night Third Rail Installer at the bedside Sister will leave for [facility] tomorrow BM regular No urinary retention Walked with 1 person assist Conferred with RN Reviewed therapy notes Checked meds and labs Review of Systems General: Fatigue Musculoskeletal: back pain Neurological: Confusion Objective Exam Vital Signs Vital Signs Date Time Temp Pulse Resp B/P (MAP) Pulse Ox O2 Delivery O2 Flow Rate FiO2 01/19/19 09:00 Room Air 01/19/19 06:16 36.9 90 18 134/79 (97) 97 Capillary Refill : General Appearance: No Apparent Distress, WD/WN, Chronically ill, Thin HEENT: PERRL/EOMI, Normal ENT Inspection, Pharynx Normal Neck: Full Range of Motion, Normal Inspection, Non Tender, Supple, Carotid Bruit Respiratory: Chest Non Tender, Lungs Clear, Normal Breath Sounds, No Accessory Muscle Use, No Respiratory Distress Cardiovascular: Regular Rate, Rhythm, No Edema, No Gallop, No JVD, No Murmur, Normal Peripheral Pulses Gastrointestinal: Normal Bowel Sounds, No Organomegaly, No Pulsatile Mass, Non Tender, Soft Back: Decreased Range of Motion Extremity: Normal Capillary Refill, Normal Inspection, Normal Range of Motion (rigidity noted all extremities), Non Tender, No Calf Tenderness, No Pedal Edema Neurologic/Psychiatric: Alert, Oriented x3, No Motor/Sensory Deficits, sterilization tech II- XII Norm as Tested, Depressed Affect, Motor Weakness (generalized) Skin: Normal Color, Warm/Dry Lymphatic: No Adenopathy Results/Procedures Lab Patient resulted labs reviewed. FIM Transfers Therapy Code Descriptions/Definitions Functional [place] Measure: 0=Not Assessed/NA 4=Minimal Assistance 1=Total Assistance 5=Supervision or Setup 2=Maximal Assistance 6=Modified [place] 3=Moderate Assistance 7=Complete IndependenceSCALE: Activities may be completed with or without assistive devices. 1-Kotvlfewyk-lmzouji completes the activity by him/herself with no assistance from a helper. 5-Set-up or Clean-up Assistance-helper sets up or cleans up; patient completes activity. [place] assists only prior to or following the activity. 4-Supervision or Touching Assistance-helper provides verbal cues and/or touching/steadying and/or contact guard assistance as patient completes activity . Assistance may be provided throughout the activity or intermittently. 3-Partial/Moderate Assistance-helper does LESS THAN HALF the effort. [place] lifts, holds or supports trunk or limbs, but provides less than half the effort. 2-Substantial/Maximal Assistance-helper does MORE THAN HALF the effort. [place] lifts or holds trunk or limbs and provides more than half the effort. 1-Fuuovdled-eejzez does ALL the effort. Patient does none of the effort to complete the activity. Or, the assistance of 2 or more helpers is required for the patient to complete the activity. If activity was not attempted, code reason: 7-Patient Refused. 9-Not Applicable-not attempted and the patient did not perform the activity before the current illness, exacerbation or injury. 10-Not Attempted due to Environmental Limitations-(lack of equipment, weather restraints, etc.). 88-Not Attempted due to Medical Conditions or Safety Concerns. Roll Left to Right (QC): 3 (Eboni) Sit to Lying (QC): 2 (modA) Sit to Stand (QC): 3 (Eboni) Chair/Nrw-vw-Ruzce Xfer(QC): 3 (Eboni) Car Transfer (QC): 3 (Eboni) Gait Training Does the Patient Walk?: Yes Distance (FIM): 7=189-88 ft Walk 10 feet (QC): 2 (modA) Walk 50 ft with 2 Turns(QC): 2 (modA) Walk 150 ft (QC): 88 Walking 10ft/uneven surface-QC: 2 (modA) Gait Assistive Device: FWW Wheelchair Training Does the Pt Use a Wheelchair?: No Stair Training 1 Step (curb) (QC): 2 (modA) 4 Steps (QC): 88 12 Steps (QC): 88 Balance Picking up an Object (QC): 2 (modA) ADL-Treatment Eating (QC): 3 (Requires assist gathering cup and stabilizing to drink. Requires assist maintaining upright position) Oral Hygiene (QC): 4 (Requires CGA while seated EOB, pt completes toothpaste donning with cues for finger placement.) Shower/Bathe Self (QC): 3 (Assist with stabilization EOB, completes all areas other than bottoms of feet and back. CGA in stance.) Upper Body Dressing (QC): 2 (s/u, pt requires cues for initiation/ termination of task. Pt requires max A for back brace doff/ donning- increased cueing increases pt's processing time. Pt requires CGA-mod A for maintaining upright position thorughout EOB UB dressing.) Lower Body Dressing (QC): 3 (Pt able to thread BLE with min A for adjusting clothing over foot.) On/Off Footwear (QC): 7 Toileting Hygiene (QC): 4 (CGA in stance.) Toilet Transfer (QC): 4 (CGA to standard toilet. ) Assessment/Plan Assessment and Plan Assess & Plan/Chief Complaint Assessment: s/p lumbar spine surgery Severe PD with brain stimulator in place Urinary retention s/p in-out cath at [facility] prior to transfer Constipation chronic Smoker Fall risk Hyponatremia Cognitive deficits? Plan: Monitor pain IRF protocol BM regimen Monitor urinary issues may need Urology (1) Radiculopathy, lumbar region (2) Parkinsons (3) Parkinson's disease with use of electrical brain stimulation (4) COPD (chronic obstructive pulmonary disease) (5) Smoker (6) GERD (gastroesophageal reflux disease) (7) Urinary retention (8) Constipation (9) Chronic pain (10) Cognitive deficit due to Parkinson's disease (11) Risk for falls (12) Moderately thin body habitus in adult ENMANUEL HARRIS DO Jan 18, 2019 12:03 POS
--- NOTE | 2019-01-18 12:11 | Individualized Plan of Care ---
Individualized Plan of Care Rehab Nursing IPOC Order Admission Date Jan 17, 2019 at 13:55 Current Orders Orders Admission Order(Inpt,Obs,Sdc) (01/17/19 10:36) Emanuel Crowder , (01/17/19 10:36) Sequential Compression Device Q4H (01/17/19 10:36) Tool Builder-Inpt Rehab Con (01/17/19 10:36) Dietary Consult (01/17/19 10:36) Rehab Nursing Orders-Ipoc (01/17/19 10:36) Physical Therapy Rehab Orders (01/17/19 10:36) Occupational Therapy Rehab Ord (01/17/19 10:36) Speech Therapy Rehab Orders (01/17/19 10:36) Cbc With Automated Diff (01/18/19 06:00) Comprehensive Metabolic Panel (01/18/19 06:00) General/Regular (01/17/19 Dinner) Intake & Output 06,14, (01/17/19 10:36) Weekly Weight WEEK (01/17/19 10:36) Rehab-Intensity Of Therapy (01/17/19 10:36) Initiate Admission Nursing Pro .admission (01/17/19 10:36) Acetaminophen Tablet (Tylenol Tablet) (01/17/19 10:45) Alprazolam Tablet (Xanax Tablet) (01/17/19 10:45) Calcium Carbonate Chew Tablet (Antacid C (01/17/19 10:45) Diphenhydramine Tablet (Benadryl Tablet) (01/17/19 10:45) Docusate Sodium Capsule (Colace Capsule) (01/17/19 10:45) Bisacodyl Suppository (Dulcolax Supposit (01/17/19 10:45) Lactulose Oral Solution (Enulose Oral So (01/17/19 10:45) Na Phos/Na Biphos Enema (Fleet Enema Rolando (01/17/19 10:45) Guaifenesin/Codeine Syrup (Robitussin Ac (01/17/19 10:45) Hydrocodone/Apap 5/325 Tablet (Lortab 5 (01/17/19 10:45) Loperamide Tablet (Imodium Tablet) (01/17/19 10:45) Melatonin Tablet (Melatonin Tablet) (01/17/19 10:45) Polyethylene Glycol Powder Pkt (Miralax (01/17/19 21:00) Ondansetron Oral Dissolve Tab (Zofran (01/17/19 10:45) Senna S Tablet (Senokot S Tablet) (01/17/19 21:00) Admission Arrival Bed Request (01/17/19 13:55) Baclofen Tablet (Lioresal Tablet) (01/17/19 15:00) Docusate Sodium Capsule (Colace Capsule) (01/18/19 09:00) Therapeutic Multivitamin Tab (Vitamins, (01/18/19 07:00) (Nf) Amitriptyline Hcl (01/17/19 21:00) (Nf) Armodafinil (01/17/19 15:00) (Nf) Aspirin/Acetaminophen/Caffeine (Exc (01/17/19 15:00) (Nf) Carbidopa/Levodopa (Carbidopa-Levod (01/17/19 15:00) (Nf) Carisoprodol (01/17/19 15:00) (Nf) Hydrocodone/Acetaminophen (Hydrocod (01/17/19 15:00) Amitriptyline Tablet (Elavil Tablet) (01/17/19 21:00) Hydrocodone/Apap 5/325 Tablet (Lortab 5 (01/17/19 15:00) Carisoprodol Tablet (Soma Tablet) (01/17/19 15:00) Carbidopa/Levodopa 25/100 (Sinemet 25/10 (01/17/19 15:00) Aspirin Chewable Tablet (Baby Aspirin Ch (01/17/19 15:15) Acetaminophen Tablet/Caplet (Tylenol T (01/17/19 15:15) Patient Visit (01/17/19 ) Pt Eval Moderate Complexity (01/17/19 ) Exercise Therap, Ea 15 Min (01/17/19 ) Gait Training, Ea 15 Min (01/17/19 ) Functional Activities, Ea 15 (01/17/19 ) Patient Visit (01/17/19 ) Speech Sound Lang Comp (01/17/19 ) Code/Resuscitation (01/17/19 20:42) Request Ot Evaluate & Treat (01/17/19 21:00) Ambulate 08,12,20 (01/17/19 21:24) Sequential Compression Device Q4H (01/17/19 21:24) Dvt/Vte Risk - Notifiy Physici Q4H (01/17/19 21:24) Patient Visit (01/18/19 ) Gait Training, Ea 15 Min (01/18/19 ) Exercise Therap, Ea 15 Min (01/18/19 ) Rehab Nursing Orders: Ongoing Assess. of Cognitive Status, Ongoing Assess. of Function Status, Bladder Management, Bladder Scan, Bladder Training, Bowel Management, Disease Management & Educaiton, DVT Prophylaxis, Fluid/Electrolyte/Nutrition Mgmt, Infection Prevention, Medication Management & Education, Management of Risks & Complications, Nutrition Management, Pain Management, Patient/Family Support, Safety Management Intensity of Therapy to be met Patient to be seen: Min.3h per day/5 of 7d PT IPOC Problem List: Activity Tolerance, Functional Strength, Safety, Balance, Gait, Transfer, Bed Mobility, ROM Treatment Plan: Continue Plan of Care Bed Mobility, Concurrent Therapy, Education, Functional Activity Oniel, Functional Strength, Group Therapy, Gait, Safety, Therapeutic Exercise, Transfers Treatment Duration: Feb 07, 2019 Frequency: At least 5 of 7 days/Wk (IRF) Estimated Hrs Per Day: 1.5 hours per day OT IPOC Problems: Decreased Activ Tolerance, Decreased Safety Aware, Decreased UE Strength OT Treatment, Training and Edu: Yes Plan of Care: ADL Retraining, Caregiver Training, Functional Mobility, Group Exercise/Act as Ind, UE Neuromus Re-Ed/Coord Treatment Duration: Feb 14, 2019 Frequency: At least 5 of 7 days/Wk (IRF) Estimated Hrs Per Day: 1.[address] IPOC Speech Therapy Treatment Plan: Continue Plan of Care Treatment Duration: Jan 29, 2019 Frequency: 5 times per week Estimated Hrs Per Day: .5 hour per day Tool Builder/Case Mgmt Tool Builder/Case Managemen: Discharge Planning Dietitian/Recovery Coach Dietitian/Recovery Coach to monitor nutritional status and make changes and/or recommendations as needed and work with speech pathology on dietary upgrades as the occur. Physician IPOC Medical Issues being managed closely and that require the 24 hour availability of a physician: Severe PD with brain stimulator s/p extensive lumbar spine surgery with cognitive deficits will require close monitoring Medical Issues: Bowel/Bladder Function, DVT Prophylaxis, Falls Precautions, Fluid/Electrolyte/Nutrition Balance, Pain Management Brief Synthesis of Preadmission Screen, Post-Admission Evaluation, and Therapy Evaluations: Medical Prognosis: Good Anticipated Length of Stay: 7 days ENMANUEL HARRIS DO Jan 18, 2019 12:10 POS
--- NOTE | 2019-01-18 12:31 | Physical Therapy Daily Note ---
PT Daily Note-Current Subjective Pt agreeable to PT session, asking several times how he is going to get back after he goes home and how he will get home. Pain Numeric Pain Scale: 4 Comment: R low back and down R leg Appearance Pt sitting up in chair upon arrival with chair alarm activated. At end of session, pt sitting up in recliner with chair alarm activated, call light, phone and bedside table within reach Mental Status Patient Orientation: Person, Confused (able to answer some questions but some confusion was noted throughout tx session), Eyes Open, Situation Transfers SCALE: Activities may be completed with or without assistive devices. 4-Qdxzrczioq-emtsnns completes the activity by him/herself with no assistance from a helper. 5-Set-up or Clean-up Assistance-helper sets up or cleans up; patient completes activity. [place] assists only prior to or following the activity. 4-Supervision or Touching Assistance-helper provides verbal cues and/or touching/steadying and/or contact guard assistance as patient completes activity. Assistance may be provided throughout the activity or intermittently. 3-Partial/Moderate Assistance-helper does LESS THAN HALF the effort. [place] lifts, holds or supports trunk or limbs, but provides less than half the effort. 2-Substantial/Maximal Assistance-helper does MORE THAN HALF the effort. [place] lifts or holds trunk or limbs and provides more than half the effort. 7-Delcbtpch-xsbxmm does ALL the effort. Patient does none of the effort to complete the activity. Or, the assistance of 2 or more helpers is required for the patient to complete the activity. If activity was not attempted, code reason: 7-Patient Refused. 9-Not Applicable-not attempted and the patient did not perform the activity before the current illness, exacerbation or injury. 10-Not Attempted due to Environmental Limitations-(lack of equipment, weather restraints, etc.). 88-Not Attempted due to Medical Conditions or Safety Concerns. Sit to Stand (QC): 3 CGA x3 reps, min A x3 reps due to retro LOB Weight Bearing Right Lower Extremity: Right Full Weight Bearing Left Lower Extremity: Left Full Weight Bearing Back Support Brace Gait Training Does the Patient Walk?: Yes Distance: 150 x2 Walk 10 feet (QC): 4 Walk 50 ft with 2 Turns(QC): 4 Walk 150 ft (QC): 4 Gait Persons Needed: 1 Gait Assistive Device: FWW skilled inst required to correct scissoring gait and very NBOS and gait speed too fast, pt requiring re instruction several times throughout gait distances. Unsteady and no heel strike, walking on toes/forefoot Exercises NuStep Minutes: 10 NuStep Workload: 4 (seat 13, Arms 12, requiring A with LE's onto and off of pedals) Treatments education, safety, gait, transfers, don doff back support brace, strength, balance, functional mobility, activity tolerance Assessment Current Status: Good Progress PT Short Term Goals Short Term Goals Time Frame: Jan 24, 2019 Gait Distance Comment: 250' Gait Assistive Device: FWW # of Steps: 1 PT Sharepoint Analyst Goals Sharepoint Analyst Goals PT [facility]sp Goals Time Frame: Feb 07, 2019 Sit to Lying (QC): 5 Lying-Sitting on Side/Bed(QC): 5 Sit to Stand (QC): 6 Roll Left to Right (QC): 6 Chair/Qsz-pk-Ydodj Xfer(QC): 6 Car Transfer (QC): 6 Does the Patient Walk: Yes Distance: 350' Walk 10 feet (QC): 5 Walk 10ft-Uneven Surface(QC): 5 Walk 50ft with 2 Turns (QC): 5 Walk 150 ft (QC): 5 Gait Assistive Device: FWW 1 Step (curb) (QC): 6 Picking up an Object (QC): 4 (SBA) PT Plan Treatment/Plan Treatment Plan: Continue Plan of Care Treatment Plan: Bed Mobility, Concurrent Therapy, Education, Functional Activity Oniel, Functional Strength, Group Therapy, Gait, Safety, Therapeutic Exercise, Transfers Treatment Duration: Feb 07, 2019 Frequency: At least 5 of 7 days/Wk (IRF) Estimated Hrs Per Day: 1.5 hours per day Patient and/or Family Agrees t: Yes Safety Risks/Education Patient Education: Gait Training, Transfer Techniques, Correct Positioning, Reviewed Don/Doff Brace, Safety Issues Teaching Recipient: Patient Teaching Methods: Demonstration, Discussion Response to Teaching: Verbalize Understanding, Return Demonstration, Reinforcement Needed Time/GCodes Time In: 937 Time Out: 1001 Total Billed Treatment Time: 24 Total Billed Treatment 1 visit, GT x 1 unit, EX x1 unit BEVERLEY RICHARD GENERATOR MAN Jan 18, 2019 12:31 POS
--- NOTE | 2019-01-18 16:55 | NUR ---
Pt had been sleeping. Sinemet given at this time. Not woken up per pts girlfriend request. Pts girlfriend left at this time and to be back tomorrow. Good support from her.
[2019-01-18 17:05] VITALS: BP 134/82
--- NOTE | 2019-01-18 19:00 | NUR ---
states pain level 2/10 on numeric scale
--- NOTE | 2019-01-18 19:06 | NUR ---
bedside report received from OWEN ROJAS, assume care of pt
[2019-01-18] MEDS: MELATONIN 3 MG TABLET PO PRN (21:05)
[2019-01-18] MEDS: AMITRIPTYLINE 50 MG (ELAVIL) TAB PO SCH (21:05)
--- NOTE | 2019-01-18 21:05 | NUR ---
took meds without difficulty with hob straight up, did agree to take laxatives this evening
[2019-01-19] MEDS: SINEMET 25/100 (CARBIDOPA/LEVODOPA) TAB PO SCH ×8 (00:06→20:39)
[2019-01-19] MEDS: HYDROcodone/APAP 5 MG/325 MG (LORTAB) TAB PO PRN ×3 (00:06→20:40)
--- NOTE | 2019-01-19 00:06 | NUR ---
c/o pain in back, level 8/10 on numeric scale, Lortab 5 2 tabs given
--- NOTE | 2019-01-19 00:50 | NUR ---
resting quietly in bed, pain level 0/10 on flacc scale
[2019-01-19] MEDS: MULTIVIT W/MINERALS TAB (THERAGRAN M) PO SCH (06:11)
--- NOTE | 2019-01-19 06:11 | NUR ---
c/o back pain level 8/10 on numeric scale, Lortab 5 2 tabs given
[2019-01-19 06:16] VITALS: BP 134/79
--- NOTE | 2019-01-19 06:57 | NUR ---
rates pain level 3/10 on numeric scale
--- NOTE | 2019-01-19 07:05 | NUR ---
bedside report given to OWEN ROJAS
[2019-01-19] MEDS: POLYETHYLENE GLYCOL 17 GM (MIRALAX) PACK PO SCH ×2 (08:30→20:45)
[2019-01-19] MEDS: SENNA W/DOCUSATE (SENOKOT S) TABLET PO SCH ×2 (08:30→20:39)
[2019-01-19] MEDS: DOCUSATE SODIUM 100 MG (COLACE) CAP PO SCH (08:30)
[2019-01-19] MEDS: ACETAMINOPHEN 500 MG TAB (TYLENOL) PO PRN (15:01)
[2019-01-19 18:21] VITALS: BP 138/94
--- NOTE | 2019-01-19 19:04 | NUR ---
bedside report received from OWEN ROJAS, assume care of pt
[2019-01-19] MEDS: AMITRIPTYLINE 50 MG (ELAVIL) TAB PO SCH (20:39)
[2019-01-19] MEDS: MELATONIN 3 MG TABLET PO PRN (20:39)
--- NOTE | 2019-01-19 20:39 | NUR ---
took Senokot but refused miralax
--- NOTE | 2019-01-19 20:40 | NUR ---
c/o back pain level 4/10 on numeric scale, Lortab 5 1 tab given
--- NOTE | 2019-01-19 21:50 | NUR ---
pain level 2/10 on numeric scale
[2019-01-20] MEDS: SINEMET 25/100 (CARBIDOPA/LEVODOPA) TAB PO SCH ×8 (02:52→21:12)
[2019-01-20] MEDS: ACETAMINOPHEN 500 MG TAB (TYLENOL) PO PRN (02:52)
--- NOTE | 2019-01-20 02:52 | NUR ---
c/o back pain level 4/10 on numeric scale, Tylenol 500mg given
--- NOTE | 2019-01-20 03:40 | NUR ---
resting quietly in bed, pain level 0/10 on flacc scale
[2019-01-20 05:23] LABS: BASOPHILS % (AUTO) 0 % (0-10); EOSINOPHILS # (AUTO) 0.4 10^3/uL (0.0-0.3); EOSINOPHILS % (AUTO) 6 % (0-10); HEMATOCRIT 36 % (40-54); HEMOGLOBIN 12.1 G/DL (13.3-17.7); LYMPHOCYTES # (AUTO) 1.7 X 10^3 (1.0-4.0); LYMPHOCYTES % (AUTO) 25 % (12-44); MEAN CORPUSCULAR HEMOGLOBIN 32 PG (25-34); MEAN CORPUSCULAR HGB CONC 33 G/DL (32-36); MEAN CORPUSCULAR VOLUME 98 FL (80-99); MEAN PLATELET VOLUME 9.2 FL (7.4-10.4); MONOCYTES # (AUTO) 0.9 X 10^3 (0.0-1.0); MONOCYTES % (AUTO) 14 % (0-12); NEUTROPHILS # (AUTO) 3.7 X 10^3 (1.8-7.8); NEUTROPHILS % (AUTO) 55 % (42-75); PLATELET COUNT 342 10^3/uL (130-400); RED CELL DISTRIBUTION WIDTH 12.8 % (10.0-14.5); WHITE BLOOD COUNT 6.8 10^3/uL (4.3-11.0)
[2019-01-20 05:53] LABS: ALANINE AMINOTRANSFERASE 9 U/L (0-55); ALBUMIN 3.8 GM/DL (3.2-4.5); ALKALINE PHOSPHATASE 95 U/L (40-136); BILIRUBIN,TOTAL 0.5 MG/DL (0.1-1.0); BUN/CREATININE RATIO 25; CALCIUM 9.9 MG/DL (8.5-10.1); CARBON DIOXIDE 26 MMOL/L (21-32); CHLORIDE 101 MMOL/L (98-107); CREATININE SERUM 0.83 MG/DL (0.60-1.30); GFR ESTIMATED > 60; GLUCOSE 99 MG/DL (70-105); POTASSIUM 3.8 MMOL/L (3.6-5.0); SODIUM 138 MMOL/L (135-145); TOTAL PROTEIN 6.5 GM/DL (6.4-8.2)
[2019-01-20 06:06] VITALS: BP 125/84
[2019-01-20] MEDS: MULTIVIT W/MINERALS TAB (THERAGRAN M) PO SCH (06:11)
[2019-01-20] MEDS: HYDROcodone/APAP 5 MG/325 MG (LORTAB) TAB PO PRN ×2 (06:11→14:01)
--- NOTE | 2019-01-20 06:11 | NUR ---
c/o back pain level 8/10 on numeric scale, Lortab 5 1 tab given
--- NOTE | 2019-01-20 06:53 | NUR ---
rates pain level 3/10 on numeric scale
--- NOTE | 2019-01-20 08:04 | PM&R Progress Note ---
Subjective HPI/CC On Admission Date Seen by Provider: Jan 20, 2019 Time Seen by Provider: 08:15 Subjective/Events-last exam One painpill instead of two was given and that improved the confusion last night Pt does definitely have cognitive deficit due to Parkinson's Overall feels like he is doing better Dr. Casillas will see him in consultation for incontinence Overall feels like he is progressing Conferred with RN Reviewed therapy notes Checked meds and labs Review of Systems General: Fatigue Genitourinary: Incontinence Musculoskeletal: back pain Neurological: Confusion Objective Exam Vital Signs Vital Signs Date Time Temp Pulse Resp B/P (MAP) Pulse Ox O2 Delivery O2 Flow Rate FiO2 01/20/19 16:00 36.9 97 16 127/81 (96) 97 Room Air Capillary Refill : General Appearance: No Apparent Distress, WD/WN, Chronically ill, Thin HEENT: PERRL/EOMI, Normal ENT Inspection, Pharynx Normal Neck: Full Range of Motion, Normal Inspection, Non Tender, Supple, Carotid Bruit Respiratory: Chest Non Tender, Lungs Clear, Normal Breath Sounds, No Accessory Muscle Use, No Respiratory Distress Cardiovascular: Regular Rate, Rhythm, No Edema, No Gallop, No JVD, No Murmur, Normal Peripheral Pulses Gastrointestinal: Normal Bowel Sounds, No Organomegaly, No Pulsatile Mass, Non Tender, Soft Back: Decreased Range of Motion Extremity: Normal Capillary Refill, Normal Inspection, Normal Range of Motion (rigidity noted all extremities), Non Tender, No Calf Tenderness, No Pedal Edema Neurologic/Psychiatric: Alert, Oriented x3, No Motor/Sensory Deficits, voltmeter operator II- XII Norm as Tested, Depressed Affect, Motor Weakness (generalized) Skin: Normal Color, Warm/Dry Lymphatic: No Adenopathy Results/Procedures Lab Laboratory Tests 01/20/19 05:05 Patient resulted labs reviewed. FIM Transfers Therapy Code Descriptions/Definitions Functional [place] Measure: 0=Not Assessed/NA 4=Minimal Assistance 1=Total Assistance 5=Supervision or Setup 2=Maximal Assistance 6=Modified [place] 3=Moderate Assistance 7=Complete IndependenceSCALE: Activities may be completed with or without assistive devices. 0-Imofjssgjh-ibxamwn completes the activity by him/herself with no assistance from a helper. 5-Set-up or Clean-up Assistance-helper sets up or cleans up; patient completes activity. [place] assists only prior to or following the activity. 4-Supervision or Touching Assistance-helper provides verbal cues and/or touching/steadying and/or contact guard assistance as patient completes activity. Assistance may be provided throughout the activity or intermittently. 3-Partial/Moderate Assistance-helper does LESS THAN HALF the effort. [place] lift s, holds or supports trunk or limbs, but provides less than half the effort. 2-Substantial/Maximal Assistance-helper does MORE THAN HALF the effort. [place] lifts or holds trunk or limbs and provides more than half the effort. 8-Xcirjzqzi-uoceit does ALL the effort. Patient does none of the effort to complete the activity. Or, the assistance of 2 or more helpers is required for the patient to complete the activity. If activity was not attempted, code reason: 7-Patient Refused. 9-Not Applicable-not attempted and the patient did not perform the activity before the current illness, exacerbation or injury. 10-Not Attempted due to Environmental Limitations-(lack of equipment, weather restraints, etc.). 88-Not Attempted due to Medical Conditions or Safety Concerns. Roll Left to Right (QC): 3 ([place]) Sit to Lying (QC): 2 (modA) Sit to Stand (QC): 3 Chair/Sef-cd-Xjefb Xfer(QC): 3 ([place]) Car Transfer (QC): 3 ([place]) Gait Training Does the Patient Walk?: Yes Distance (FIM): 7=680-97 ft Distance: 150 x2 Walk 10 feet (QC): 4 Walk 50 ft with 2 Turns(QC): 4 Walk 150 ft (QC): 4 Walking 10ft/uneven surface-QC: 2 (modA) Gait Persons Needed: 1 Gait Assistive Device: FWW Wheelchair Training Does the Pt Use a Wheelchair?: No Stair Training 1 Step (curb) (QC): 2 (modA) 4 Steps (QC): 88 12 Steps (QC): 88 Balance Picking up an Object (QC): 2 (modA) ADL-Treatment Eating (QC): 3 (Requires assist gathering cup and stabilizing to drink. Requires assist maintaining upright position) Oral Hygiene (QC): 4 (Requires CGA while seated EOB, pt completes toothpaste donning with cues for finger placement.) Shower/Bathe Self (QC): 3 (Assist with stabilization EOB, completes all areas other than bottoms of feet and back. CGA in stance.) Upper Body Dressing (QC): 2 (s/u, pt requires cues for initiation/ termination of task. Pt requires max A for back brace doff/ donning- increased cueing increases pt's processing time. Pt requires CGA-mod A for maintaining upright position thorughout EOB UB dressing.) Lower Body Dressing (QC): 3 (Pt able to thread BLE with min A for adjusting clothing over foot.) On/Off Footwear (QC): 7 Toileting Hygiene (QC): 4 (CGA in stance.) Toilet Transfer (QC): 4 (CGA to standard toilet. ) Assessment/Plan Assessment and Plan Assess & Plan/Chief Complaint Assessment: s/p lumbar spine surgery Severe PD with brain stimulator in place Urinary retention s/p in-out cath at [facility] prior to transfer Constipation chronic Smoker Fall risk Hyponatremia Cognitive deficits? Plan: Monitor pain IRF protocol BM regimen Monitor urinary issues may need Urology Monitor confusion (1) Radiculopathy, lumbar region (2) Parkinsons (3) Parkinson's disease with use of electrical brain stimulation (4) COPD (chronic obstructive pulmonary disease) (5) Smoker (6) GERD (gastroesophageal reflux disease) (7) Urinary retention (8) Constipation (9) Chronic pain (10) Cognitive deficit due to Parkinson's disease (11) Risk for falls (12) Moderately thin body habitus in adult HARRISKAITLIN HARRISOmer PATRICIO Jan 20, 2019 08:04 POS
[2019-01-20] MEDS: DOCUSATE SODIUM 100 MG (COLACE) CAP PO SCH (09:00)
[2019-01-20] MEDS: SENNA W/DOCUSATE (SENOKOT S) TABLET PO SCH ×2 (09:00→21:15)
[2019-01-20] MEDS: POLYETHYLENE GLYCOL 17 GM (MIRALAX) PACK PO SCH ×2 (09:17→21:15)
--- NOTE | 2019-01-20 10:57 | Physical Therapy Daily Note ---
PT Daily Note-Current Subjective pt in recliner pre-tx agrees to therapy. Pt reports he has just a little pain in his back at this time. pt states he needs to go to the bathroom right now, pt transfer to toilet and had made a large BM in his brief. Patient needs max assist for cleaning and redressing. Appearance pt in recliner post-tx with chair alarm set. pt with call light, room phone, tray table in reach with all needs met at this time. Mental Status Patient Orientation: Person, Place pt requires multiple cues and redirecting for simple 1 step instructions. Transfers SCALE: Activities may be completed with or without assistive devices. 9-Njlnpnqkqd-kqbaktp completes the activity by him/herself with no assistance from a helper. 5-Set-up or Clean-up Assistance-helper sets up or cleans up; patient completes activity. [place] assists only prior to or following the activity. 4-Supervision or Touching Assistance-helper provides verbal cues and/or touching/steadying and/or contact guard assistance as patient completes activity. Assistance may be provided throughout the activity or intermittently. 3-Partial/Moderate Assistance-helper does LESS THAN HALF the effort. Loop lifts, holds or supports trunk or limbs, but provides less than half the effort. 2-Substantial/Maximal Assistance-helper does MORE THAN HALF the effort. Loop lifts or holds trunk or limbs and provides more than half the effort. 7-Uudxvjrsp-fbhhlt does ALL the effort. Patient does none of the effort to complete the activity. Or, the assistance of 2 or more helpers is required for the patient to complete the activity. If activity was not attempted, code reason: 7-Patient Refused. 9-Not Applicable-not attempted and the patient did not perform the activity before the current illness, exacerbation or injury. 10-Not Attempted due to Environmental Limitations-(lack of equipment, weather restraints, etc.). 88-Not Attempted due to Medical Conditions or Safety Concerns. Sit to Stand (QC): 4 Chair/Unh-aa-Tpvtl Xfer(QC): 4 Weight Bearing Right Lower Extremity: Right Full Weight Bearing Left Lower Extremity: Left Full Weight Bearing Back Support Brace Gait Training Distance: 150'x2, 50' Walk 10 feet (QC): 3 (Eboni-CGA) Walk 50 ft with 2 Turns(QC): 3 (Eboin-CGA) Walk 150 ft (QC): 3 (Eboni-CGA) Gait Assistive Device: FWW pt with improvement on scissor gait from last session. Pt was able to improve gait further with cues to increase velocity. Pt continues to have difficulty with turning and has multiple large cross overs requiring assist to maintain balance. Wheelchair Training Does the Pt Use a Wheelchair?: No Balance Special Test Comments pt walked around gym picking up 8 york bags that required large reaches to challenge COM to maintain JACKIE Exercises Standing: Side steps (BD // bars 4 times), Step-ups (10 laterally B/L, 5 forward B/L onto pink step) NuStep Minutes: 11 NuStep Workload: 4 Treatments pt performed balance training, transfer training, skilled ambulation training, functional LE strengthening/endurance training, and education. Assessment Current Status: Good Progress pt is improving with increased width in JACKIE. VC's to increase ambulation velocity result in further improved width in JACKIE. When pt was getting into the toilet pt had a large cross over requiring modA to keep balance and get JACKIE where he could sit. When pt gets into a hurry and tries to turn he continues to loose proper position and is a continued fall risk. PT Short Term Goals Short Term Goals Time Frame: Jan 24, 2019 Gait Distance Comment: 250' Gait Assistive Device: FWW (CGA) PT Strip Tank Tender Goals Fdc Goals PT Fdc Goals Time Frame: Feb 07, 2019 Sit to Lying (QC): 4 Lying-Sitting on Side/Bed(QC): 4 Sit to Stand (QC): 4 Roll Left to Right (QC): 4 Chair/Giz-ls-Mqqol Xfer(QC): 4 Car Transfer (QC): 4 Does the Patient Walk: Yes Distance: 350' Walk 10 feet (QC): 4 Walk 10ft-Uneven Surface(QC): 4 Walk 50ft with 2 Turns (QC): 4 Walk 150 ft (QC): 4 Gait Assistive Device: FWW 1 Step (curb) (QC): 4 4 Steps (QC): 4 Picking up an Object (QC): 4 (CGA) PT Plan Problem List Problem List: Activity Tolerance, Functional Strength, Safety, Balance, Gait, Transfer, Bed Mobility, ROM Treatment/Plan Treatment Plan: Continue Plan of Care Treatment Plan: Bed Mobility, Concurrent Therapy, Education, Functional Activity Oniel, Functional Strength, Group Therapy, Gait, Safety, Therapeutic Exercise, Transfers Treatment Duration: Feb 07, 2019 Frequency: At least 5 of 7 days/Wk (IRF) Estimated Hrs Per Day: 1.5 hours per day Patient and/or Family Agrees t: Yes Safety Risks/Education Patient Education: Gait Training, Transfer Techniques, Correct Positioning, Safety Issues Teaching Recipient: Patient Teaching Methods: Demonstration, Discussion Response to Teaching: Return Demonstration, Reinforcement Needed Time/GCodes Time In: 1000 Time Out: 1100 Total Billed Treatment Time: 60 Total Billed Treatment 1 visit FA 45' GT 15' MARY ALEXIS PT Jan 20, 2019 10:57 POS
--- NOTE | 2019-01-20 11:04 | Speech Therapy Daily Note ---
Speech Daily Progress Note Subjective Date Seen by Provider: Jan 20, 2019 Time Seen by Provider: 00:30 Patient was sitting up in his recliner, much more alert today. Objective Patient completed general information questions with 80% given 20% verbal cuing. Assessment Assessment Current Status: Good Progress Treatment Plan Continue Plan of Care Speech Short Term Goals Short Term Goals Short Term Goals 1) The patient will complete memory tasks related to his daily needs at 90% or greater given minimal cues. 2) The patient will complete problem solving tasks related to his daily needs at 90% or greater given minimal cues. 3) The patient will complete safety awareness tasks related to his daily needs at 90% or greater given minimal cues. Speech Snf Goals Snf Goals Patient will improve cognitive-communication necessary for safety and daily living tasks with minimal assist. Speech-Plan Patient/Family Goals Patient/Family Goals: Patient plans on returning to his home with his significant other upon rehab discharge. Treatment Plan Speech Therapy Treatment Plan: Continue Plan of Care Patient is making good progress with therapies. Treatment Duration: Jan 29, 2019 Frequency: 5 times per week Estimated Hrs Per Day: .5 hour per day Rehab Potential: Guarded Barriers to Learning: Patient has cognitive deficits. Pt/Family Agrees to Plan: Yes Safety Risks/Education Teaching Recipient: Patient Teaching Methods: Demonstration, Discussion Response to Teaching: Verbalize Understanding, Return Demonstration Education Topics Provided: Continued safety within his room Time Speech Therapy Time In: 08:30 Speech Therapy Time Out: 09:00 Total Billed Time: 30 Billed Treatment Time [address] Jan 20, 2019 11:04 POS
--- NOTE | 2019-01-20 12:10 | NUR ---
Initial assessment completed with patient who was admitted 01/17/19 for lumbar spondy. Patient underwent L5-S1 AP fusion with revision of hardware 01/14/19. Patient's pre-existing Idiopathic Parkinson's Disease along with the surgical intervention, resulted in a notable functional decline. Patient resides with his SO/Joelle Pierce ([phone]). Patient states that Joelle assists him when it is needed, he does maintain as much independence as possible. He reports no other agency or supportive services in the home. DME: Patient has FWW and 4WW. He has a grab bar for bathroom bathing area. He is currently wearing a back support brace post op. Patient is insured Medicare and [employer]. Weekly team conference was introduced to patient and he indicated understanding purpose. Will continue intermittent review and updates as it relates to post hospital care.
--- NOTE | 2019-01-20 12:27 | Occupational Ther Daily Note ---
OT Current Status-Daily Note Subjective Pt c/o 06/12 dull ache/pain in midback, seen in recliner chair and agreeable to OT tx session. ADL-Treatment Therapy Code Descriptions/Definitions Functional [place] Measure: 0=Not Assessed/NA 4=Minimal Assistance 1=Total Assistance 5=Supervision or Setup 2=Maximal Assistance 6=Modified [place] 3=Moderate Assistance 7=Complete IndependenceSCALE: Activities may be completed with or without assistive devices. 3-Xlejoqfylf-azhqtmu completes the activity by him/herself with no assistance from a helper. 5-Set-up or Clean-up Assistance-helper sets up or cleans up; patient completes activity. [place] assists only prior to or following the activity. 4-Supervision or Touching Assistance-helper provides verbal cues and/or touching/steadying and/or contact guard assistance as patient completes activity. Assistance may be provided throughout the activity or intermittently. 3-Partial/Moderate Assistance-helper does LESS THAN HALF the effort. [place] lifts, holds or supports trunk or limbs, but provides less than half the effort. 2-Substantial/Maximal Assistance-helper does MORE THAN HALF the effort. [place] lifts or holds trunk or limbs and provides more than half the effort. 7-Nrprvdwdl-ftzwlk does ALL the effort. Patient does none of the effort to complete the activity. Or, the assistance of 2 or more helpers is required for the patient to complete the activity. If activity was not attempted, code reason: 7-Patient Refused. 9-Not Applicable-not attempted and the patient did not perform the activity before the current illness, exacerbation or injury. 10-Not Attempted due to Environmental Limitations-(lack of equipment, weather restraints, etc.). 88-Not Attempted due to Medical Conditions or Safety Concerns. Eating (QC): 6 (brings water to mouth and drinks) Shower/Bathe Self (QC): 3 (Pt requires CGA in stance for jesús/ bottom hygiene; CGA in sitting for LB washing; requires assist washing back.) Upper Body Dressing (QC): 3 (Pt doffs back brace and shirt with IND. Pt completes shirt donning with min A for adjusting rolled up shirt in back and mod A for donning back brace. ) Lower Body Dressing (QC): 4 (CGA during pant donning- pt completes while laying down. min A for cueing and introduction of sock aide. Pt completes with min A.) Other Treatment Pt completes ADLs in room with increased energy/ endurance/ direction following. Pt completes UB bathing in chair, gets up from chair once UB dressing on and sits EOB. Pt completes doffing with CGA, leans back completely for pant donning. Pt states he sits on a cedar chest at home to complete donning LB dressing and socks. Pt not able to maintain upright position to don socks- introduction of sock aide. Pt completes with min A. Pt states he has shoe horn at home, states he was resistant to AE prior to hospitalization but is now open to AE. Pt sit to stand with cues for safety and pushing off of bed. Pt return demonstrates. Pt returns to recliner chair, call light in reach, all needs met, chair alarm on. Education OT Patient Education: Correct positioning, Modified ADL techniques, Progress toward Goal/Update tx plan, Purpose of tx/functional activities, Safety issues, Transfer techniques Teaching Recipient: Patient Teaching Methods: Demonstration, Discussion Response to Teaching: Verbalize Understanding, Return Demonstration OT Short Term Goals Short Term Goals Time Frame: Jan 31, 2019 Upper Body Dressing(FIM): 3 Lower Body Dressing(FIM): 3 Toileting(FIM): 3 Toilet/Commode Transfer(FIM): 3 1=Demonstrate adherence to instructed precautions during ADL tasks. 2=Patient will verbalize/demonstrate understanding of assistive devices/modifications for ADL. 3=Patient will improve strength/tolerance for activity to enable patient to perform ADL's. OT Long-Term Goals Welt Slasher Goals Time Frame: Feb 14, 2019 Eating (QC): 6 (met) Oral Hygiene (QC): 6 Shower/Bathe Self (QC): 5 Upper Body Dressing (QC): 6 Lower Body Dressing (QC): 6 On/Off Footwear (QC): 6 Toileting Hygiene (QC): 6 Toilet/Commode Transfer (QC): 6 Additional Goals: 1-Demonstrate ADL Tasks, 2-Verbalize Understanding, 3- ImproveStrength/Oniel 1=Demonstrate adherence to instructed precautions during ADL tasks. 2=Patient will verbalize/demonstrate understanding of assistive devices/modifications for ADL. 3=Patient will improve strength/tolerance for activity to enable patient to perform ADL's. OT Education/Plan Problem List/Assessment Assessment: Decreased Activ Tolerance, Decreased UE Strength, Impaired Bed Mobility, Impaired Cognition, Impaired Funct Balance, Impaired I ADL's, Impaired Self-Care Skills Discharge Recommendations Plan/Recommendations: Continue POC Equpiment Recommendations-D/C: Sock Aide Treatment Plan/Plan of Care Treatment,Training & Education: Yes Patient would benefit from OT for education, treatment and training to promote independence in ADL's, mobility, safety and/or upper extremity function for ADL's. Plan of Care: ADL Retraining, Caregiver Training, Functional Mobility, Group Exercise/Act as Ind, UE Neuromus Re-Ed/Coord Treatment Duration: Feb 14, 2019 Frequency: At least 5 of 7 days/Wk (IRF) Estimated Hrs Per Day: 1.5 hours per day Agreement: Yes Rehab Potential: Guarded Time/GCodes Start Time: 11:00 Stop Time: 12:00 Total Time Billed (hr/min): 60 Billed Treatment Time 1, ADL 4 (60) SANYA SMALL OTR Jan 20, 2019 12:27 POS
--- NOTE | 2019-01-20 13:13 | NUR ---
"RD ASSESSMENT PMHx: Parkinson's disease; COPD; GERD; s/p lumbar spine surgery PT INTERACTION: Pt was awake and pleasant during consult for MST score. Pt states current appetite isn't good and hasn't been since his accident. Note pt avg PO intake between 50-75% x3d, per chart review. Pt states following a regular diet at home, and currently has no issues chewing/swallowing food. Pt states no recent issues with n/v/c/d at this time, and last BM was 01/20. Note pt currently on bowel regimen of colace qd, miralax BID, senna BID, per chart review. Pt states no recent wt changes. Note unable to determine recent wt hx, per chart review. Given pt's current PO intake and wt hx, pt is not at risk for malnutrition per ASPEN guidelines. ABNORMAL NUTRITION-RELATED LAB VALUES: BUN 21 (H) Est. kcal needs: 2970-5563 kcal | 25-30 kcal/kg Est. Pro needs: 75-88 g Pro | 1.2-1.4 g Pro/kg PES STATEMENT: Inadequate oral intake (NI-2.1) related to loss of appetite as evidenced by pt interview INTERVENTION: Continue with current diet order of Regular diet. Pt may benefit from nutrition supplementation if PO intake declines. MONITOR/EVALUATE: PO Intake; Plan of Care; Hydration Status; Weight Status; Lab Values Abdoulaye Rivero, MS, RD, LD"
--- NOTE | 2019-01-20 13:29 | Occupational Ther Daily Note ---
OT Current Status-Daily Note Subjective Pt seen in recliner chair, no pain stated. Pt agreeable to OT tx session. ADL-Treatment Therapy Code Descriptions/Definitions Functional [place] Measure: 0=Not Assessed/NA 4=Minimal Assistance 1=Total Assistance 5=Supervision or Setup 2=Maximal Assistance 6=Modified [place] 3=Moderate Assistance 7=Complete IndependenceSCALE: Activities may be completed with or without assistive devices. 0-Fqvozdeacb-pukpupy completes the activity by him/herself with no assistance from a helper. 5-Set-up or Clean-up Assistance-helper sets up or cleans up; patient completes activity. [place] assists only prior to or following the activity. 4-Supervision or Touching Assistance-helper provides verbal cues and/or touching/steadying and/or contact guard assistance as patient completes activity. Assistance may be provided throughout the activity or intermittently. 3-Partial/Moderate Assistance-helper does LESS THAN HALF the effort. [place] lifts, holds or supports trunk or limbs, but provides less than half the effort. 2-Substantial/Maximal Assistance-helper does MORE THAN HALF the effort. [place] lifts or holds trunk or limbs and provides more than half the effort. 0-Rkgrgsgmb-ynyjvs does ALL the effort. Patient does none of the effort to complete the activity. Or, the assistance of 2 or more helpers is required for the patient to complete the activity. If activity was not attempted, code reason: 7-Patient Refused. 9-Not Applicable-not attempted and the patient did not perform the activity before the current illness, exacerbation or injury. 10-Not Attempted due to Environmental Limitations-(lack of equipment, weather restraints, etc.). 88-Not Attempted due to Medical Conditions or Safety Concerns. Other Treatment Pt denies need for bathroom. pt sit to stand with CGA, cues for safety with FWW. Pt ambulates with semi-scissored/ quick gait to therapy gym. obstacle in way, demonstrates slowing gait with increased amounts of scissoring. Pt completes 10 minutes of moderate resistance (35 watt) arm bike. Pt states he is "out of shape" and requires rest break after 7 minutes. Pt states he was previous smoker and quit ~1.5 years ago. Pt states he was griping to significant other on phone about "not being able to do anything." Pt questioned on statement, pt explains "You get what you pay for," questioned again and pt explains frustration of first 2 days on ARU and inability to do things IND. Pt educated on ARU process, requiring we maintain safety though frustrating since pt was IND at home. Pt agrees, pt educated that his responses are valued and he can communicate items he would like to work on while here. Pt nods, nursing gives medication during arm bike. Pt completes fine motor / pinching task with graded clothes pins, completes with difficulty raising arms to reach past table for reaching with 2# wrist weights on. Pt completes faster motions to gather pins from shoulder height, able to gather. Pt misses aftab to place pins onto, pt states difficulty seeing and no feeling in finger tips. Pt completes placing 4 green pins onto aftab; pt states he has lazy eye and depth perception difficult. Pt able to complete with touch perception. Pt returns to recliner chair, call light in reach, chair alarm on, all needs met. Education OT Patient Education: Exercise program, Home exercise program, Purpose of tx/functional activities, Safety issues, Transfer techniques Teaching Recipient: Patient Teaching Methods: Demonstration, Discussion Response to Teaching: Verbalize Understanding, Return Demonstration OT Short Term Goals Short Term Goals Time Frame: Jan 31, 2019 Upper Body Dressing(FIM): 3 Lower Body Dressing(FIM): 3 Toileting(FIM): 3 Toilet/Commode Transfer(FIM): 3 1=Demonstrate adherence to instructed precautions during ADL tasks. 2=Patient will verbalize/demonstrate understanding of assistive devices/modifications for ADL. 3=Patient will improve strength/tolerance for activity to enable patient to perform ADL's. OT Skilled Nursing Goals [employer] Operator Goals Time Frame: Feb 14, 2019 Eating (QC): 6 (met) Oral Hygiene (QC): 6 Shower/Bathe Self (QC): 5 Upper Body Dressing (QC): 6 Lower Body Dressing (QC): 6 On/Off Footwear (QC): 6 Toileting Hygiene (QC): 6 Toilet/Commode Transfer (QC): 6 Additional Goals: 1-Demonstrate ADL Tasks, 2-Verbalize Understanding, 3- ImproveStrength/Oniel 1=Demonstrate adherence to instructed precautions during ADL tasks. 2=Patient will verbalize/demonstrate understanding of assistive devices/modifications for ADL. 3=Patient will improve strength/tolerance for activity to enable patient to perform ADL's. OT Education/Plan Problem List/Assessment Assessment: Decreased Activ Tolerance, Decreased UE Strength, Impaired Coordination, Impaired I ADL's, Impaired Self-Care Skills Discharge Recommendations Plan/Recommendations: Continue POC Treatment Plan/Plan of Care Treatment,Training & Education: Yes Patient would benefit from OT for education, treatment and training to promote independence in ADL's, mobility, safety and/or upper extremity function for ADL's. Plan of Care: ADL Retraining, Caregiver Training, Functional Mobility, Group Exercise/Act as Ind, UE Neuromus Re-Ed/Coord Treatment Duration: Feb 14, 2019 Frequency: At least 5 of 7 days/Wk (IRF) Estimated Hrs Per Day: 1.5 hours per day Agreement: Yes Rehab Potential: Guarded Time/GCodes Start Time: 12:50 Stop Time: 13:20 Total Time Billed (hr/min): 30 Billed Treatment Time 1, EX 2 = 30 SANYA SMALL OTR Jan 20, 2019 13:29 POS
--- NOTE | 2019-01-20 15:34 | Physical Therapy Daily Note ---
PT Daily Note-Current Subjective Pt agreeable to PT. No complaints. Transfers SCALE: Activities may be completed with or without assistive devices. 9-Szxxkbsqif-nneeakg completes the activity by him/herself with no assistance from a helper. 5-Set-up or Clean-up Assistance-helper sets up or cleans up; patient completes activity. [place] assists only prior to or following the activity. 4-Supervision or Touching Assistance-helper provides verbal cues and/or touching/steadying and/or contact guard assistance as patient completes activity. Assistance may be provided throughout the activity or intermittently. 3-Partial/Moderate Assistance-helper does LESS THAN HALF the effort. [place] l ifts, holds or supports trunk or limbs, but provides less than half the effort. 2-Substantial/Maximal Assistance-helper does MORE THAN HALF the effort. [place] lifts or holds trunk or limbs and provides more than half the effort. 2-Vxlwayarn-sghgmo does ALL the effort. Patient does none of the effort to complete the activity. Or, the assistance of 2 or more helpers is required for t he patient to complete the activity. If activity was not attempted, code reason: 7-Patient Refused. 9-Not Applicable-not attempted and the patient did not perform the activity before the current illness, exacerbation or injury. 10-Not Attempted due to Environmental Limitations-(lack of equipment, weather restraints, etc.). 88-Not Attempted due to Medical Conditions or Safety Concerns. Weight Bearing Right Lower Extremity: Right Full Weight Bearing Left Lower Extremity: Left Full Weight Bearing Back Support Brace Treatments Pt required assist to don his back brace. Sit to stand with CGA with skilled cues for sequencing and safety. Pt ambulated x 150 ft x 2 with FWW with CGA with min assist with turning due to scissored gait during turning. Pt walks with narrow JACKIE and occas scissoring with min assist for balance and safety; heavy cues for safety. Up/down 4 steps x 2 with B handrail with reciprocal gait with close CGA. Again, narrow JACKIE on the stairs. worked on functional step forward and back in the // bars to widen JACKIE and increase safety with walking. Pt in room in chair with chair alarm activated post treatment. Assessment Current Status: Fair Progress Unsteady gait with decreased safety awareness. PT Short Term Goals Short Term Goals Time Frame: Jan 24, 2019 PT Care Home Goals Care Home Goals PT Care Home Goals Time Frame: Feb 07, 2019 Roll Left & Right (QC): 4 Sit to Lying (QC): 4 Lying-Sitting on Side/Bed(QC): 4 Sit to Stand (QC): 4 Chair/Lrb-cj-Qcadm Xfer(QC): 4 Toilet Transfer (QC): 6 Car Transfer (QC): 4 Does the Patient Walk: Yes Walk 10 feet (QC): 4 Walk 50ft with 2 Turns (QC): 4 Walk 150 ft (QC): 4 Walking 10ft on Uneven Surface: 4 1 Step (curb) (QC): 4 4 Steps (QC): 4 12 Steps (QC): 88 Picking up an Object (QC): 4 (CGA) Does the Pt use WC or Scooter?: No Type: N/A Type: N/A PT Plan Problem List Problem List: Activity Tolerance, Functional Strength, Safety, Balance, Gait, Transfer Treatment/Plan Treatment Plan: Continue Plan of Care Treatment Plan: Bed Mobility, Concurrent Therapy, Education, Functional Activity Oniel, Functional Strength, Group Therapy, Gait, Safety, Therapeutic Exercise, Transfers Treatment Duration: Feb 07, 2019 Frequency: At least 5 of 7 days/Wk (IRF) Estimated Hrs Per Day: 1.5 hours per day Patient and/or Family Agrees t: Yes Safety Risks/Education Patient Education: Gait Training Teaching Recipient: Patient Teaching Methods: Demonstration, Discussion Response to Teaching: Reinforcement Needed Time/GCodes Time In: 1400 Time Out: 1430 Total Billed Treatment Time: 30 Total Billed Treatment visit GT 30 ARTEMIO BARROW PT Jan 20, 2019 15:34 POS
[2019-01-20 16:00] VITALS: BP 127/81
--- NOTE | 2019-01-20 18:30 | CONSULTATION REPORT ---
DATE OF SERVICE: 01/20/2019 ATTENDING PHYSICIAN: Marah Johns DO SUMMARY: A 61-year-old white man with Parkinson disease, recovering from back surgery about a week ago, had a catheter for 48 hours. It was removed and then the patient started having some urgency and frequency and some urgency incontinence. No dysuria, no hematuria. Denies any voiding symptoms in the past despite the Parkinson's disease. IMPRESSION: Catheter cystitis, rule out retention or infection and overactive bladder. PLAN: 1. Clean catch urinalysis. 2. Bladder scan, postvoid residual and manage accordingly. Job ID: [id number] DocumentID: [id number] Dictated Date: 01/20/2019 17:47:44 Regulator Pin Inserter Date: 01/20/2019 18:29:34 Dictated By: AMANDA BRAVO MD
[2019-01-20] MEDS: AMITRIPTYLINE 50 MG (ELAVIL) TAB PO SCH (21:11)
[2019-01-21] MEDS: SINEMET 25/100 (CARBIDOPA/LEVODOPA) TAB PO SCH ×8 (00:54→20:53)
[2019-01-21 05:58] VITALS: BP 155/90
[2019-01-21 06:00] LABS: BILIRUBIN,URINE NEGATIVE (NEGATIVE); CLARITY,URINE CLEAR; COLOR,URINE YELLOW; GLUCOSE, URINE (UA) NEGATIVE (NEGATIVE); KETONES,URINE NEGATIVE (NEGATIVE); LEUKOCYTE ESTERASE ,URINE NEGATIVE (NEGATIVE); NITRITE,URINE NEGATIVE (NEGATIVE); PROTEIN,URINE NEGATIVE (NEGATIVE)
[2019-01-21] MEDS: MULTIVIT W/MINERALS TAB (THERAGRAN M) PO SCH (06:08)
[2019-01-21] MEDS: ASPIRIN 81 MG CHEW (CHILDREN'S ASA) PO PRN (06:31)
[2019-01-21 06:33] LABS: AMORPHOUS SEDIMENT,UR FEW AMOR URATES /LPF; BACTERIA,URINE NEGATIVE /HPF; RBC,URINE 0-2 /HPF; SQUAMOUS EPITHELIAL CELL,UR 0-2 /HPF
[2019-01-21] MEDS: ACETAMINOPHEN 500 MG TAB (TYLENOL) PO PRN (06:45)
[2019-01-21] MEDS: DOCUSATE SODIUM 100 MG (COLACE) CAP PO SCH (08:25)
[2019-01-21] MEDS: SENNA W/DOCUSATE (SENOKOT S) TABLET PO SCH ×2 (08:25→20:58)
[2019-01-21] MEDS: POLYETHYLENE GLYCOL 17 GM (MIRALAX) PACK PO SCH ×2 (08:25→20:58)
--- NOTE | 2019-01-21 08:35 | PM&R Progress Note ---
Subjective HPI/CC On Admission Date Seen by Provider: Jan 21, 2019 Time Seen by Provider: 08:15 Subjective/Events-last exam Pt doing better and better. Minimal pain medication given which has helped his fogginess. Slept okay. Dr. Casillas help is appreciated, bladder scan only 43 CCs. Checking UA. Bowel are moving. Incontinence of bowel and bladder which could complicated discharge plans. Conferred with RN Reviewed therapy notes Checked meds and labs Review of Systems General: Fatigue Genitourinary: Incontinence Objective Exam Vital Signs Vital Signs Date Time Temp Pulse Resp B/P (MAP) Pulse Ox O2 Delivery O2 Flow Rate FiO2 01/21/19 17:29 37.2 87 16 120/77 (91) 100 Room Air Capillary Refill : General Appearance: No Apparent Distress, WD/WN, Chronically ill, Thin HEENT: PERRL/EOMI, Normal ENT Inspection, Pharynx Normal Neck: Full Range of Motion, Normal Inspection, Non Tender, Supple, Carotid Bruit Respiratory: Chest Non Tender, Lungs Clear, Normal Breath Sounds, No Accessory Muscle Use, No Respiratory Distress Cardiovascular: Regular Rate, Rhythm, No Edema, No Gallop, No JVD, No Murmur, Normal Peripheral Pulses Gastrointestinal: Normal Bowel Sounds, No Organomegaly, No Pulsatile Mass, Non Tender, Soft Back: Decreased Range of Motion Extremity: Normal Capillary Refill, Normal Inspection, Normal Range of Motion (rigidity noted all extremities), Non Tender, No Calf Tenderness, No Pedal Edema Neurologic/Psychiatric: Alert, Oriented x3, No Motor/Sensory Deficits, pit clerk II- XII Norm as Tested, Depressed Affect, Motor Weakness (generalized) Skin: Normal Color, Warm/Dry Lymphatic: No Adenopathy Results/Procedures Lab Patient resulted labs reviewed. FIM Transfers Therapy Code Descriptions/Definitions Functional [place] Measure: 0=Not Assessed/NA 4=Minimal Assistance 1=Total Assistance 5=Supervision or Setup 2=Maximal Assistance 6=Modified [place] 3=Moderate Assistance 7=Complete IndependenceSCALE: Activities may be completed with or without assistive devices. 0-Wcnynsdmzj-qzzpvoa completes the activity by him/herself with no assistance from a helper. 5-Set-up or Clean-up Assistance-helper sets up or cleans up; patient completes activity. [place] assists only prior to or following the activity. 4-Supervision or Touching Assistance-helper provides verbal cues and/or touching/steadying and/or contact guard assistance as patient completes activity. Assistance may be provided throughout the activity or intermittently. 3-Partial/Moderate Assistance-helper does LESS THAN HALF the effort. [place] lifts, holds or supports trunk or limbs, but provides less than half the effort. 2-Substantial/Maximal Assistance-helper does MORE THAN HALF the effort. [place] lifts or holds trunk or limbs and provides more than half the effort. 9-Kijynxfrp-rgrhvs does ALL the effort. Patient does none of the effort to complete the activity. Or, the assistance of 2 or more helpers is required for the patient to complete the activity. If activity was not attempted, code reason: 7-Patient Refused. 9-Not Applicable-not attempted and the patient did not perform the activity before the current illness, exacerbation or injury. 10-Not Attempted due to Environmental Limitations-(lack of equipment, weather restraints, etc.). 88-Not Attempted due to Medical Conditions or Safety Concerns. Roll Left to Right (QC): 3 (Eboni) Sit to Lying (QC): 2 (modA) Sit to Stand (QC): 4 Chair/Qbg-ci-Uwswa Xfer(QC): 4 Car Transfer (QC): 3 (Eboni) Gait Training Does the Patient Walk?: Yes Distance (FIM): 8=196-40 ft Distance: 150'x2, 50' Walk 10 feet (QC): 3 (Eboni-CGA) Walk 50 ft with 2 Turns(QC): 3 (Eboni-CGA) Walk 150 ft (QC): 3 (Eboni-CGA) Walking 10ft/uneven surface-QC: 3 (modA) Gait Persons Needed: 1 Gait Assistive Device: FWW Wheelchair Training Does the Pt Use a Wheelchair?: No Stair Training 1 Step (curb) (QC): 3 (modA) 4 Steps (QC): 88 12 Steps (QC): 88 Balance Picking up an Object (QC): 3 (modA) ADL-Treatment Eating (QC): 6 (brings water to mouth and drinks) Oral Hygiene (QC): 4 (Requires CGA while seated EOB, pt completes toothpaste donning with cues for finger placement.) Shower/Bathe Self (QC): 3 (Pt requires CGA in stance for jesús/ bottom hygiene; CGA in sitting for LB washing; requires assist washing back.) Upper Body Dressing (QC): 3 (Pt doffs back brace and shirt with IND. Pt completes shirt donning with min A for adjusting rolled up shirt in back and mod A for donning back brace. ) Lower Body Dressing (QC): 4 (CGA during pant donning- pt completes while laying down. min A for cueing and introduction of sock aide. Pt completes with min A.) On/Off Footwear (QC): 7 Toileting Hygiene (QC): 4 (CGA in stance.) Toilet Transfer (QC): 4 (CGA to standard toilet. ) Assessment/Plan Assessment and Plan Assess & Plan/Chief Complaint Assessment: s/p lumbar spine surgery Severe PD with brain stimulator in place Urinary retention s/p in-out cath at [facility] prior to transfer Constipation chronic Smoker Fall risk Hyponatremia Cognitive deficits? Plan: Monitor pain IRF protocol BM regimen Monitor urinary issues may need Urology Monitor confusion (1) Radiculopathy, lumbar region (2) Parkinsons (3) Parkinson's disease with use of electrical brain stimulation (4) COPD (chronic obstructive pulmonary disease) (5) Smoker (6) GERD (gastroesophageal reflux disease) (7) Urinary retention (8) Constipation (9) Chronic pain (10) Cognitive deficit due to Parkinson's disease (11) Risk for falls (12) Moderately thin body habitus in adult HARRIS,ENMANUEL PATRICIO Jan 21, 2019 08:35 POS
[2019-01-21] MEDS: HYDROcodone/APAP 5 MG/325 MG (LORTAB) TAB PO PRN (09:13)
--- NOTE | 2019-01-21 09:31 | Physical Therapy Daily Note ---
PT Daily Note-Current Subjective pt in recliner pre-tx agrees to PT. Pt reports pain 5/10 in the low back and states he is afraid to admit he is having pain because he wants to go home tomorrow but thinks having pain will make him stay here longer. Appearance pt in recliner post-tx with call light, room phone, tray table in reach with all needs met at this time and RN present in room. Mental Status Patient Orientation: Person, Place, Time, Situation Attachments: Other-See Comments (aspen back brace) pt shows improvement with following simple and complex requests today. pt forgets that he has to have his aspen brace donned when out of bed and must be reminded that it needs to be put on. Transfers SCALE: Activities may be completed with or without assistive devices. 7-Msqqjbjpyr-wbngiuq completes the activity by him/herself with no assistance from a helper. 5-Set-up or Clean-up Assistance-helper sets up or cleans up; patient completes activity. [place] assists only prior to or following the activity. 4-Supervision or Touching Assistance-helper provides verbal cues and/or touching/steadying and/or contact guard assistance as patient completes activity. Assistance may be provided throughout the activity or intermittently. 3-Partial/Moderate Assistance-helper does LESS THAN HALF the effort. [place] lifts, holds or supports trunk or limbs, but provides less than half the effort. 2-Substantial/Maximal Assistance-helper does MORE THAN HALF the effort. [place] lifts or holds trunk or limbs and provides more than half the effort. 5-Zdpoefaal-rlythd does ALL the effort. Patient does none of the effort to complete the activity. Or, the assistance of 2 or more helpers is required for the patient to complete the activity. If activity was not attempted, code reason: 7-Patient Refused. 9-Not Applicable-not attempted and the patient did not perform the activity before the current illness, exacerbation or injury. 10-Not Attempted due to Environmental Limitations-(lack of equipment, weather restraints, etc.). 88-Not Attempted due to Medical Conditions or Safety Concerns. Lying to Sitting/Side of Bed(Q: 4 (SBA) Sit to Stand (QC): 4 (CGA) Chair/Gxj-ah-Dplpu Xfer(QC): 4 (CGA) Weight Bearing Right Lower Extremity: Right Full Weight Bearing Left Lower Extremity: Left Full Weight Bearing Back Support Brace Gait Training Does the Patient Walk?: Yes Distance: 300',120' Walk 10 feet (QC): 4 (CGA) Walk 50 ft with 2 Turns(QC): 4 (CGA) Walk 150 ft (QC): 4 (CGA) Gait Assistive Device: FWW pt continues to demonstrates trendelenberg drop on the L hip secondary to weak hip abductors with a LLE in toeing. pt continues to demonstrate scissoring gait while ambulating that improves as the pt can ambulate in a straight line. pt continues to get his feet tangled under him with turns with minor LOB leading to a high fall risk for the pt. Wheelchair Training Does the Pt Use a Wheelchair?: No Exercises Standing: Hip Abduction, Heel/toe raises, Marching, Step-ups (forward, B/L sides ) Standing Reps: 20 (2 sets 10 reps) NuStep Minutes: 10 NuStep Workload: 4 Treatments pt performed skilled ambulation training, functional LE strengthening/endurance training, transfer training, and education. Assessment Current Status: Fair Progress pt continues to demonstrate unsafe but improving abnormal gait. Pt fatigues following ambulation and exercises. Pt is motivated and ready to work. During exercises pt was asked to count out loud "loudly" which decreased pt's ability to perform the exercise. PT Short Term Goals Short Term Goals Time Frame: Jan 24, 2019 PT Police Justice Goals Retirement Goals PT Retirement Goals Time Frame: Feb 07, 2019 Roll Left & Right (QC): 4 Sit to Lying (QC): 4 Lying-Sitting on Side/Bed(QC): 4 Sit to Stand (QC): 4 Chair/Ujo-fp-Kyzmc Xfer(QC): 4 Toilet Transfer (QC): 6 Car Transfer (QC): 4 Does the Patient Walk: Yes Walk 10 feet (QC): 4 Walk 50ft with 2 Turns (QC): 4 Walk 150 ft (QC): 4 Walking 10ft on Uneven Surface: 4 1 Step (curb) (QC): 4 4 Steps (QC): 4 12 Steps (QC): 88 Picking up an Object (QC): 4 (CGA) Does the Pt use WC or Scooter?: No Type: N/A Type: N/A PT Plan Problem List Problem List: Activity Tolerance, Functional Strength, Safety, Balance, Gait, Transfer, Bed Mobility, ROM Treatment/Plan Treatment Plan: Continue Plan of Care Treatment Plan: Bed Mobility, Concurrent Therapy, Education, Functional Activity Oniel, Functional Strength, Group Therapy, Gait, Safety, Therapeutic Exercise, Transfers Treatment Duration: Feb 07, 2019 Frequency: At least 5 of 7 days/Wk (IRF) Estimated Hrs Per Day: 1.5 hours per day Patient and/or Family Agrees t: Yes Safety Risks/Education Patient Education: Gait Training, Transfer Techniques, Correct Positioning, Safety Issues Teaching Recipient: Patient Teaching Methods: Demonstration, Discussion Response to Teaching: Return Demonstration, Reinforcement Needed Time/GCodes Time In: 900 Time Out: 1000 Total Billed Treatment Time: 60 Total Billed Treatment 1 visit 15' GT 15' EX 30' FA MARY ALEXIS PT Jan 21, 2019 09:31 POS
--- NOTE | 2019-01-21 09:59 | Speech Therapy Daily Note ---
Speech Daily Progress Note Subjective Date Seen by Provider: Jan 21, 2019 Time Seen by Provider: 00:30 Patient was sitting up in his recliner, he stated he slept well last night. Objective Patient completed a series of memory questions with 80% given 15% verbal cues. Assessment Assessment Current Status: Good Progress Treatment Plan Continue Plan of Care Speech Short Term Goals Short Term Goals Short Term Goals 1) The patient will complete memory tasks related to his daily needs at 90% or greater given minimal cues. 2) The patient will complete problem solving tasks related to his daily needs at 90% or greater given minimal cues. 3) The patient will complete safety awareness tasks related to his daily needs at 90% or greater given minimal cues. Speech Rn Behavioral Health Goals Fdc Goals Patient will improve cognitive-communication necessary for safety and daily living tasks with minimal assist. Speech-Plan Patient/Family Goals Patient/Family Goals: The patient plans on returning home with his significant other post rehab. Treatment Plan Speech Therapy Treatment Plan: Continue Plan of Care Patient states he is going home tomorrow. Treatment Duration: Jan 24, 2019 Frequency: 5 times per week Estimated Hrs Per Day: .5 hour per day Rehab Potential: Guarded Barriers to Learning: Patient has cognitive deficits Pt/Family Agrees to Plan: Yes Safety Risks/Education Teaching Recipient: Patient Teaching Methods: Demonstration, Discussion Response to Teaching: Verbalize Understanding, Return Demonstration Education Topics Provided: Continued safety within his home when he is discharged. Time Speech Therapy Time In: 08:30 Speech Therapy Time Out: 09:00 Total Billed Time: 30 Billed Treatment Time 1, ANGELA ConnorHANSALOMON KENNEDY Jan 21, 2019 09:59 POS
--- NOTE | 2019-01-21 10:46 | NUR ---
Pt requested to take Sinemet now; is early, but, working w OT
--- NOTE | 2019-01-21 11:31 | Progress Note - Urology ---
Progress Note-Urology Progress Notes/Assess & Plan Progress/Assessment & Plan VOIDING WELL. PVR 43CC. MORE CONTINENT. UA NEGATIVE Final Diagnosis CATHETER CYSTITIS AMANDA BRAVO MD Jan 21, 2019 11:31 POS
--- NOTE | 2019-01-21 11:57 | Occupational Ther Daily Note ---
OT Current Status-Daily Note Subjective Pt seen in recliner chair, states no current pain. Pt's significant other present through session. Agreeable to OT tx session. ADL-Treatment Therapy Code Descriptions/Definitions Functional [place] Measure: 0=Not Assessed/NA 4=Minimal Assistance 1=Total Assistance 5=Supervision or Setup 2=Maximal Assistance 6=Modified [place] 3=Moderate Assistance 7=Complete IndependenceSCALE: Activities may be completed with or without assistive devices. 1-Gmqbpxtzqa-kuiixpk completes the activity by him/herself with no assistance from a helper. 5-Set-up or Clean-up Assistance-helper sets up or cleans up; patient completes activity. [place] assists only prior to or following the activity. 4-Supervision or Touching Assistance-helper provides verbal cues and/or touching/steadying and/or contact guard assistance as patient completes activity. Assistance may be provided throughout the activity or intermittently. 3-Partial/Moderate Assistance-helper does LESS THAN HALF the effort. [place] lifts, holds or supports trunk or limbs, but provides less than half the effort. 2-Substantial/Maximal Assistance-helper does MORE THAN HALF the effort. [place] lifts or holds trunk or limbs and provides more than half the effort. 6-Vtkinhfsr-qoofwu does ALL the effort. Patient does none of the effort to complete the activity. Or, the assistance of 2 or more helpers is required for the patient to complete the activity. If activity was not attempted, code reason: 7-Patient Refused. 9-Not Applicable-not attempted and the patient did not perform the activity before the current illness, exacerbation or injury. 10-Not Attempted due to Environmental Limitations-(lack of equipment, weather restraints, etc.). 88-Not Attempted due to Medical Conditions or Safety Concerns. Oral Hygiene (QC): 07 Shower/Bathe Self (QC): 4 (CGA in stance. Pt completes all areas (excluding back) with IND.) Lower Body Dressing (QC): 2 (Pt completes doffing with assist due to pt requiring urination. Pt completes donning new breif and pants with max A with requests for assist, pt requests additional medication. ) Toileting Hygiene (QC): 4 (CGA in stance.) Toilet Transfer (QC): 4 (CGA, use of FWW.) on/ off footwear: 4- increased time, cues for ease of sock doffing, use of shoe horn for shoe donning which required moderate cues for placement. Other Treatment Pt's significant other questions answered regarding home modifications and adaptive equipment. Pt's friend states she would like him to be able to cut meat with more IND- pt educated on weighted utensils and adaptive knives, though precautions should be used as pt's fingers have diminished sensation and pt has diminished depth perception. Pt and friend educated on stretching prior to activities and big/ large movements to prep for activities. Pt completes finger flicks to encourage fine motor activation. Pt educated on ball squeezes with visual feedback- pt to look at ball to determine amount of pressure applied through fingertips. Pt completes toileting, LB dressing in bathroom. Pt returns to sink, FWW for support, pt encouraged to use visual feedback to correct posture, pt return demonstrates and immediately returns to previous/ hunched position. Pt encouraged to correct, pt corrects then returns to recliner chair. Pt and friend educated on use of AE for LB dressing as pt required max A on toilet for LB dressing prior to medication. Pt completes sock doffing with dressing stick with max cues for positioning, pt demonstrates difficulty- states he would do better without stick. Pt completes doffing sock on opposite leg, pt states no feeling distal to top of sock. Pt encouraged to utilize thumbs to stimulate skin sensations posteriorly to sock cuff, then press down to sock cuff to get in between skin and sock (pt has difficulty due to sensation of fingers and vision). Pt not able to follow directional cues, completes with increased time in chair. pt dons sock with IND and increased time. Pt completes shaving with personal electric razor in chair, deodorant donning with IND. Pt and friend discuss urination urgency post-catheter. Pt states difficulty getting assist in room in time, pt and friend educated on use of phone to set 1.5 hour reminders to get up and try to use bathroom before urgency sets in. Pt utilizes verbal commands to set timer on phone- demonstrates competency. Pt left in recliner chair with friend present, all needs met, chair alarm set. Education OT Patient Education: Correct positioning, Exercise program, Home exercise program, Instructions to caregiver, Modified ADL techniques, Purpose of tx/functional activities, Safety issues, Use of adapted equipment Teaching Recipient: Patient, Significant Other Teaching Methods: Demonstration, Discussion Response to Teaching: Verbalize Understanding, Unable to Return Demonstration (sock doffing demonstration), Return Demonstration, Unable to Comprehend (sock doffing demonstration), Reinforcement Needed OT Short Term Goals Short Term Goals Time Frame: Jan 31, 2019 OT Loader Magazine Grinder Goals Loader Magazine Grinder Goals Time Frame: Feb 14, 2019 Eating (QC): 6 (met) Oral Hygiene (QC): 6 Toileting Hygiene (QC): 6 Shower/Bathe Self (QC): 5 Upper Body Dressing (QC): 6 Lower Body Dressing (QC): 6 On/Off Footwear (QC): 6 Additional Goals: 1-Demonstrate ADL Tasks, 2-Verbalize Understanding, 3-Impro veStrength/Noiel 1=Demonstrate adherence to instructed precautions during ADL tasks. 2=Patient will verbalize/demonstrate understanding of assistive devices/modifications for ADL. 3=Patient will improve strength/tolerance for activity to enable patient to perform ADL's. OT Education/Plan Problem List/Assessment Assessment: Decreased Activ Tolerance, Decreased UE Strength, Impaired Coordination, Impaired Funct Balance, Impaired I ADL's, Impaired Self-Care Skills Discharge Recommendations Plan/Recommendations: Continue POC Therapy Discharge Recommendati: Intermittent Supervision, Home & Family, Post Acute OT Equpiment Recommendations-D/C: Hip Kit Treatment Plan/Plan of Care Treatment,Training & Education: Yes Patient would benefit from OT for education, treatment and training to promote independence in ADL's, mobility, safety and/or upper extremity function for ADL's. Plan of Care: ADL Retraining, Caregiver Training, Functional Mobility, Group Exercise/Act as Ind, UE Neuromus Re-Ed/Coord Treatment Duration: Feb 14, 2019 Frequency: At least 5 of 7 days/Wk (IRF) Estimated Hrs Per Day: 1.5 hours per day Agreement: Yes Rehab Potential: Guarded Time/GCodes Start Time: 10:00 Stop Time: 11:30 Total Time Billed (hr/min): 90 Billed Treatment Time 1, ADL 6=90 SANYA SMALL OTR Jan 21, 2019 11:57 POS
--- NOTE | 2019-01-21 12:02 | Physical Therapy Daily Note ---
PT Daily Note-Current Subjective pt in recliner pre-tx agrees to PT. Girlfriend present in room for duration of tx. pt reports 5/10 LBP. Appearance pt in recliner post-tx with call light, room phone, tray table in reach and all needs met at this time with girlfriend present. Mental Status Patient Orientation: Person, Place, Time, Situation Attachments: IV Transfers SCALE: Activities may be completed with or without assistive devices. 4-Ekbfawpghe-mmpepfa completes the activity by him/herself with no assistance from a helper. 5-Set-up or Clean-up Assistance-helper sets up or cleans up; patient completes activity. [place] assists only prior to or following the activity. 4-Supervision or Touching Assistance-helper provides verbal cues and/or touching/steadying and/or contact guard assistance as patient completes activity. Assistance may be provided throughout the activity or intermittently. 3-Partial/Moderate Assistance-helper does LESS THAN HALF the effort. [place] lifts, holds or supports trunk or limbs, but provides less than half the effort. 2-Substantial/Maximal Assistance-helper does MORE THAN HALF the effort. [place] lifts or holds trunk or limbs and provides more than half the effort. 4-Atrispvmq-xyxfbr does ALL the effort. Patient does none of the effort to complete the activity. Or, the assistance of 2 or more helpers is required for the patient to complete the activity. If activity was not attempted, code reason: 7-Patient Refused. 9-Not Applicable-not attempted and the patient did not perform the activity before the current illness, exacerbation or injury. 10-Not Attempted due to Environmental Limitations-(lack of equipment, weather restraints, etc.). 88-Not Attempted due to Medical Conditions or Safety Concerns. Sit to Stand (QC): 4 (CGA) Weight Bearing Right Lower Extremity: Right Full Weight Bearing Left Lower Extremity: Left Full Weight Bearing Back Support Brace Gait Training Distance: 300' Walk 10 feet (QC): 4 (SBA) Walk 50 ft with 2 Turns(QC): 3 (Eboni) Walk 150 ft (QC): 4 (CGA) Gait Assistive Device: FWW pt continues to improve on scissor gait but ambulate with a very NBOS down straight aways. Pt continues to cross over and have difficulty with turns Exercises Seated Therapy Exercises: Ankle pumps, Long arc quads, Hip flexion, Hip abd/add Seated Reps: 30 (3sets 10reps) Treatments pt performed functional LE strengthening exercises, skilled ambulation training, and education this date. Assessment Current Status: Fair Progress pt NBOS and scissoring gait continuing to improve. Pt able to count out loud with exercises this session and understands reasoning for trying to be loud. Pt reports he feels like he is doing better from when he came in. PT Short Term Goals Short Term Goals Time Frame: Jan 24, 2019 PT Heel Layer Goals Alf Goals PT Heel Layer Goals Time Frame: Feb 07, 2019 Roll Left & Right (QC): 4 Sit to Lying (QC): 4 Lying-Sitting on Side/Bed(QC): 4 Sit to Stand (QC): 4 Chair/Dgs-ka-Wcygw Xfer(QC): 4 Toilet Transfer (QC): 6 Car Transfer (QC): 4 Does the Patient Walk: Yes Walk 10 feet (QC): 4 Walk 50ft with 2 Turns (QC): 4 Walk 150 ft (QC): 4 Walking 10ft on Uneven Surface: 4 1 Step (curb) (QC): 4 4 Steps (QC): 4 12 Steps (QC): 88 Picking up an Object (QC): 4 (CGA) Does the Pt use WC or Scooter?: No Type: N/A Type: N/A PT Plan Problem List Problem List: Activity Tolerance, Functional Strength, Safety, Balance, Gait, Transfer, Bed Mobility, ROM Treatment/Plan Treatment Plan: Continue Plan of Care Treatment Plan: Bed Mobility, Concurrent Therapy, Education, Functional Activity Oniel, Functional Strength, Group Therapy, Gait, Safety, Therapeutic Exercise, Transfers Treatment Duration: Feb 07, 2019 Frequency: At least 5 of 7 days/Wk (IRF) Estimated Hrs Per Day: 1.5 hours per day Patient and/or Family Agrees t: Yes Safety Risks/Education Patient Education: Gait Training, Transfer Techniques, Correct Positioning, Safety Issues Teaching Recipient: Patient Teaching Methods: Demonstration, Discussion Response to Teaching: Return Demonstration, Reinforcement Needed Time/GCodes Time In: 1140 Time Out: 1155 Total Billed Treatment Time: 15 Total Billed Treatment 1 visit FA Petr JULIENMARY ACEVEDO PT Jan 21, 2019 12:02 POS
[2019-01-21 17:29] VITALS: BP 120/77
--- NOTE | 2019-01-21 19:23 | NUR ---
bedside report received from SHANTA ROJAS, assume care of pt
[2019-01-21] MEDS: MELATONIN 3 MG TABLET PO PRN (20:52)
[2019-01-21] MEDS: AMITRIPTYLINE 50 MG (ELAVIL) TAB PO SCH (20:52)
--- NOTE | 2019-01-21 20:53 | NUR ---
pt refused miralax & Senokot, rates pain at 0/10 on numeric scale
[2019-01-22] MEDS: ASPIRIN 81 MG CHEW (CHILDREN'S ASA) PO PRN (00:06)
[2019-01-22] MEDS: SINEMET 25/100 (CARBIDOPA/LEVODOPA) TAB PO SCH ×8 (00:06→21:36)
[2019-01-22] MEDS: ACETAMINOPHEN 500 MG TAB (TYLENOL) PO PRN (00:06)
--- NOTE | 2019-01-22 00:06 | NUR ---
c/o back pain level 3/10 on numeric scale, Tylenol 500mg & baby aspirin 162mg given
--- NOTE | 2019-01-22 00:44 | NUR ---
resting quietly in bed, pain level 0/10 on flacc scale
[2019-01-22 05:37] VITALS: BP 150/82
[2019-01-22] MEDS: HYDROcodone/APAP 5 MG/325 MG (LORTAB) TAB PO PRN (06:16)
[2019-01-22] MEDS: MULTIVIT W/MINERALS TAB (THERAGRAN M) PO SCH (06:16)
--- NOTE | 2019-01-22 06:16 | NUR ---
c/o back pain level 7/10 on numeric scale, Lortab 5 1 tab given
--- NOTE | 2019-01-22 07:06 | NUR ---
rates pain at 3/10 on numeric scale
--- NOTE | 2019-01-22 07:20 | NUR ---
bedside report given to SHANTA ROJAS
--- NOTE | 2019-01-22 07:45 | PM&R Progress Note ---
Subjective HPI/CC On Admission Date Seen by Provider: Jan 22, 2019 Time Seen by Provider: 08:15 Subjective/Events-last exam Today is going very well for him Incontinence of bowel and bladder continues Night time for the girlfriend will be dicey because he does get delirium Pain is well controlled Involved in a [facility] program in [place] Confer[place] with RN Reviewed therapy notes Checked meds and labs Review of Systems General: Fatigue Musculoskeletal: back pain Objective Exam Vital Signs Vital Signs Date Time Temp Pulse Resp B/P (MAP) Pulse Ox O2 Delivery O2 Flow Rate FiO2 01/22/19 17:16 37.3 82 20 133/88 (103) 99 Room Air Capillary Refill : General Appearance: No Apparent Distress, WD/WN, Chronically ill, Thin HEENT: PERRL/EOMI, Normal ENT Inspection, Pharynx Normal Neck: Full Range of Motion, Normal Inspection, Non Tender, Supple, Carotid Bruit Respiratory: Chest Non Tender, Lungs Clear, Normal Breath Sounds, No Accessory Muscle Use, No Respiratory Distress Cardiovascular: Regular Rate, Rhythm, No Edema, No Gallop, No JVD, No Murmur, Normal Peripheral Pulses Gastrointestinal: Normal Bowel Sounds, No Organomegaly, No Pulsatile Mass, Non Tender, Soft Back: Decreased Range of Motion Extremity: Normal Capillary Refill, Normal Inspection, Normal Range of Motion (rigidity noted all extremities), Non Tender, No Calf Tenderness, No Pedal Edema Neurologic/Psychiatric: Alert, Oriented x3, No Motor/Sensory Deficits, 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 FIM Transfers Therapy Code Descriptions/Definitions Functional [place] Measure: 0=Not Assessed/NA 4=Minimal Assistance 1=Total Assistance 5=Supervision or Setup 2=Maximal Assistance 6=Modified [place] 3=Moderate Assistance 7=Complete IndependenceSCALE: Activities may be completed with or without assistive devices. 2-Dxdzkybegn-nxnjfon completes the activity by him/herself with no assistance from a helper. 5-Set-up or Clean-up Assistance-helper sets up or cleans up; patient completes activity. [place] assists only prior to or following the activity. 4-Supervision or Touching Assistance-helper provides verbal cues and/or touching/steadying and/or contact guard assistance as patient completes activity. Assistance may be provided throughout the activity or intermittently. 3-Partial/Moderate Assistance-helper does LESS THAN HALF the effort. [place] lifts, holds or supports trunk or limbs, but provides less than half the effort. 2-Substantial/Maximal Assistance-helper does MORE THAN HALF the effort. [place] lifts or holds trunk or limbs and provides more than half the effort. 6-Hehyegqdy-aiesuq does ALL the effort. Patient does none of the effort to complete the activity. Or, the assistance of 2 or more helpers is required for the patient to complete the activity. If activity was not attempted, code reason: 7-Patient Refused. 9-Not Applicable-not attempted and the patient did not perform the activity before the current illness, exacerbation or injury. 10-Not Attempted due to Environmental Limitations-(lack of equipment, weather restraints, etc.). 88-Not Attempted due to Medical Conditions or Safety Concerns. Roll Left to Right (QC): 3 (Eboni) Sit to Lying (QC): 2 (modA) Sit to Stand (QC): 4 (CGA) Chair/Cbb-ps-Lffzg Xfer(QC): 4 (CGA) Car Transfer (QC): 3 (Eboni) Gait Training Does the Patient Walk?: Yes Distance (FIM): 3=586-19 ft Distance: 300' Walk 10 feet (QC): 4 (SBA) Walk 50 ft with 2 Turns(QC): 3 (Eboni) Walk 150 ft (QC): 4 (CGA) Walking 10ft/uneven surface-QC: 3 (modA) Gait Persons Needed: 1 Gait Assistive Device: FWW Wheelchair Training Does the Pt Use a Wheelchair?: No Stair Training 1 Step (curb) (QC): 3 (modA) 4 Steps (QC): 88 12 Steps (QC): 88 Balance Picking up an Object (QC): 3 (modA) ADL-Treatment Eating (QC): 6 (brings water to mouth and drinks) Oral Hygiene (QC): 07 Shower/Bathe Self (QC): 4 (CGA in stance. Pt completes all areas (excluding back) with IND.) Upper Body Dressing (QC): 3 (Pt doffs back brace and shirt with IND. Pt completes shirt donning with min A for adjusting rolled up shirt in back and mod A for donning back brace. ) Lower Body Dressing (QC): 2 (Pt completes doffing with assist due to pt requiring urination. Pt completes donning new breif and pants with max A with requests for assist, pt requests additional medication. ) On/Off Footwear (QC): 7 Toileting Hygiene (QC): 4 (CGA in stance.) Toilet Transfer (QC): 4 (CGA, use of FWW.) Assessment/Plan Assessment and Plan Assess & Plan/Chief Complaint Assessment: s/p lumbar spine surgery Severe PD with brain stimulator in place Urinary retention s/p in-out cath at [facility] prior to transfer Constipation chronic Smoker Fall risk Hyponatremia Cognitive deficits? Plan: Monitor pain IRF protocol BM regimen Monitor urinary issues may need Urology Monitor confusion DC 01/24/19 (1) Radiculopathy, lumbar region (2) Parkinsons (3) Parkinson's disease with use of electrical brain stimulation (4) COPD (chronic obstructive pulmonary disease) (5) Smoker (6) GERD (gastroesophageal reflux disease) (7) Urinary retention (8) Constipation (9) Chronic pain (10) Cognitive deficit due to Parkinson's disease (11) Risk for falls (12) Moderately thin body habitus in adult ENMANUEL HARRIS DO Jan 22, 2019 07:44 POS
--- NOTE | 2019-01-22 08:38 | NUR ---
Pt working w therapy, pt asked if he could have some Ibuprofen ? Notified Dr. Johns & rec'd orders.
--- NOTE | 2019-01-22 08:59 | Physical Therapy Daily Note ---
PT Daily Note-Current Subjective Patient agrees to PT at this time. Patient reports feeling good today, with minimal LBP present this morning. Pain Numeric Pain Scale: 3 Location: Lower Location Body Site: Back Pain Description: Ache Mental Status Patient Orientation: Person, Place, Time, Situation Transfers SCALE: Activities may be completed with or without assistive devices. 5-Ntkpfcvmqw-usydlis completes the activity by him/herself with no assistance from a helper. 5-Set-up or Clean-up Assistance-helper sets up or cleans up; patient completes activity. [place] assists only prior to or following the activity. 4-Supervision or Touching Assistance-helper provides verbal cues and/or touching/steadying and/or contact guard assistance as patient completes activity. Assistance may be provided throughout the activity or intermittently. 3-Partial/Moderate Assistance-helper does LESS THAN HALF the effort. [place] lifts, holds or supports trunk or limbs, but provides less than half the effort. 2-Substantial/Maximal Assistance-helper does MORE THAN HALF the effort. [place] lifts or holds trunk or limbs and provides more than half the effort. 2-Nmkzoxess-dhgyuv does ALL the effort. Patient does none of the effort to complete the activity. Or, the assistance of 2 or more helpers is required for the patient to complete the activity. If activity was not attempted, code reason: 7-Patient Refused. 9-Not Applicable-not attempted and the patient did not perform the activity before the current illness, exacerbation or injury. 10-Not Attempted due to Environmental Limitations-(lack of equipment, weather restraints, etc.). 88-Not Attempted due to Medical Conditions or Safety Concerns. Roll Left & Right (QC): 4 Sit to Lying (QC): 4 Lying to Sitting/Side of Bed(Q: 4 Sit to Stand (QC): 4 SBA bed mobility; CGA standing Weight Bearing Right Lower Extremity: Right Full Weight Bearing Left Lower Extremity: Left Full Weight Bearing Back Support Brace Gait Training Does the Patient Walk?: Yes Distance: 150' x2; 300' Walk 10 feet (QC): 4 Walk 50 ft with 2 Turns(QC): 4 Walk 150 ft (QC): 4 Gait Assistive Device: FWW Ambulates with NBOS, often scissoring legs, which patient is aware he has been corrected on previously. Lack of heel strike present, primarily with RLE. Persistent knee flexion through all gait. Required frequent cues to remain within walker. During turns, does not stay in walker and crosses feet over each to complete turn. Able to correct JACKIE width and scissoring with cues. Exercises Supine Ex: Heel Slides, Straight leg raise, Hip abd/add (sidelying) Supine Reps: 12 Seated Therapy Exercises: Ankle pumps, Sit to stand, Long arc quads, Hip flexion Seated Reps: [address] Ex=Flex, Abd, Ext (heel taps) Standing Reps: 10 NuStep Minutes: 10 Assessment Current Status: Good Progress at risk for falls, requires FT supervision /CGA PT Short Term Goals Short Term Goals Time Frame: Jan 24, 2019 PT Litigation Docket Manager Goals Correction Goals PT Litigation Docket Manager Goals Time Frame: Feb 07, 2019 Roll Left & Right (QC): 4 Sit to Lying (QC): 4 Lying-Sitting on Side/Bed(QC): 4 Sit to Stand (QC): 4 Chair/Bkj-hu-Dkbya Xfer(QC): 4 Toilet Transfer (QC): 6 Car Transfer (QC): 4 Does the Patient Walk: Yes Walk 10 feet (QC): 4 Walk 50ft with 2 Turns (QC): 4 Walk 150 ft (QC): 4 Walking 10ft on Uneven Surface: 4 1 Step (curb) (QC): 4 4 Steps (QC): 4 12 Steps (QC): 88 Picking up an Object (QC): 4 (CGA) Does the Pt use WC or Scooter?: No Type: N/A Type: N/A PT Plan Treatment/Plan Treatment Plan: Continue Plan of Care Treatment Plan: Bed Mobility, Concurrent Therapy, Education, Functional Activity Oniel, Functional Strength, Group Therapy, Gait, Safety, Therapeutic Exercise, Transfers Treatment Duration: Feb 07, 2019 Frequency: At least 5 of 7 days/Wk (IRF) Estimated Hrs Per Day: 1.5 hours per day Patient and/or Family Agrees t: Yes Safety Risks/Education Patient Education: Gait Training, Correct Positioning, Safety Issues Teaching Recipient: Patient Teaching Methods: Demonstration, Discussion Response to Teaching: Verbalize Understanding, Return Demonstration Time/GCodes Time In: 800 Time Out: 900 Total Billed Treatment Time: 60 Total Billed Treatment 1 visit EX x2 30min GT x2 30min SUGEY MIJARES CONTENT DESIGNER Jan 22, 2019 08:59 POS
[2019-01-22] MEDS: IBUPROFEN TABLET 200 MG TAB PO PRN (09:27)
--- NOTE | 2019-01-22 09:29 | NUR ---
Pt states that he was in the [facility] program in [place] prior to having the back surgery, & that he will return to that eventually after surgeon approves.
[2019-01-22] MEDS: DOCUSATE SODIUM 100 MG (COLACE) CAP PO SCH (10:48)
[2019-01-22] MEDS: SENNA W/DOCUSATE (SENOKOT S) TABLET PO SCH ×2 (10:49→20:37)
[2019-01-22] MEDS: POLYETHYLENE GLYCOL 17 GM (MIRALAX) PACK PO SCH ×2 (10:49→20:37)
--- NOTE | 2019-01-22 11:23 | Occupational Ther Daily Note ---
OT Current Status-Daily Note Subjective Pt states 3/10 pain at start of session, seen in recliner chair. Pt agreeable to OT tx session with goals of working on motor planning tasks. Mental Status/Objective Patient Orientation: Normal For Age ADL-Treatment Therapy Code Descriptions/Definitions Functional [place] Measure: 0=Not Assessed/NA 4=Minimal Assistance 1=Total Assistance 5=Supervision or Setup 2=Maximal Assistance 6=Modified [place] 3=Moderate Assistance 7=Complete IndependenceSCALE: Activities may be completed with or without assistive devices. 1-Gzumvgrcbs-owaxjde completes the activity by him/herself with no assistance from a helper. 5-Set-up or Clean-up Assistance-helper sets up or cleans up; patient completes activity. [place] assists only prior to or following the activity. 4-Supervision or Touching Assistance-helper provides verbal cues and/or touching/steadying and/or contact guard assistance as patient completes activity. Assistance may be provided throughout the activity or intermittently. 3-Partial/Moderate Assistance-helper does LESS THAN HALF the effort. [place] lifts, holds or supports trunk or limbs, but provides less than half the effort. 2-Substantial/Maximal Assistance-helper does MORE THAN HALF the effort. [place] lifts or holds trunk or limbs and provides more than half the effort. 7-Wjicazkab-ewqmsm does ALL the effort. Patient does none of the effort to complete the activity. Or, the assistance of 2 or more helpers is required for the patient to complete the activity. If activity was not attempted, code reason: 7-Patient Refused. 9-Not Applicable-not attempted and the patient did not perform the activity before the current illness, exacerbation or injury. 10-Not Attempted due to Environmental Limitations-(lack of equipment, weather restraints, etc.). 88-Not Attempted due to Medical Conditions or Safety Concerns. Eating (QC): 6 Other Treatment Pt states he will not be doing too much but will be "planning for Thanksgiving, grocery shopping and driving." Pt agrees he wants to work toward motor planning on this date. Pt completes sit to stand with SBA and utilizes FWW to reach therapy gym, sits EOM. Pt educated on stretching prior to activities, completes stretching with mirror placed in front of pt for visual feedback. Pt able to correct posturing with verbal cues. Pt completes fine motor warm ups and educated on importance of facial exercises to increase communication skills and motor control. Pt completes midline crossing tasks and grasp/ release tasks. Pt has difficulty with slow/ controlled movements; pt able to reach across midline, grab small peg, and bring arm back across midline to place peg in peg board with good motor control. Pt unable to follow R then L then R hand grasp pattern. Pt given task to think aloud/ or in head to complete R and L hand patterns, pt demonstrates great increase in ability to follow motor pattern when stating which hand is going to complete the task. Pt completes reaching tasks outside JACKIE with fair motor movements, leans back a majority of the time requiring cues for correction. Pt stands at counter to complete reaching with hands free, does not lose balance and able to reach in scaption planes and follow R/ L hand pattern with minimal cues. Pt stands for ~6 minutes. Pt completes kitchen mobility/ safety activities with demonstration of safe transfer of water from sink to stovetop with use of FWW. Pt unable to return demostrate with additional cues and an additional demonstration, rather pt attempts to hold on to both pot and FWW or only one hand on FWW. Pt educated on safety and necessity of good safety in kitchen. Pt expresses acknowledgement of concern and states he plans to use FWW ~"90% of the time in the kitchen". Pt left in recliner chair end of session, call light in reach, all needs met, chair alarm on. Education OT Patient Education: Correct positioning, Exercise program, Home exercise program, Modified ADL techniques, Purpose of tx/functional activities, Safety issues, Transfer techniques, Use of adapted equipment Teaching Recipient: Patient Teaching Methods: Demonstration, Discussion Response to Teaching: Verbalize Understanding, Return Demonstration OT Short Term Goals Short Term Goals Time Frame: Jan 31, 2019 OT Correction Goals Correction Goals Time Frame: Feb 14, 2019 Eating (QC): 6 (met) Oral Hygiene (QC): 6 Toileting Hygiene (QC): 6 Shower/Bathe Self (QC): 5 Upper Body Dressing (QC): 6 Lower Body Dressing (QC): 6 On/Off Footwear (QC): 6 Additional Goals: 1-Demonstrate ADL Tasks, 2-Verbalize Understanding, 3- ImproveStrength/Oniel 1=Demonstrate adherence to instructed precautions during ADL tasks. 2=Patient will verbalize/demonstrate understanding of assistive devices/modifications for ADL. 3=Patient will improve strength/tolerance for activity to enable patient to perform ADL's. OT Education/Plan Problem List/Assessment Assessment: Decreased Activ Tolerance, Decreased Safety Aware, Decreased UE Strength, Impaired Cognition, Impaired Funct Balance, Impaired I ADL's, Impaired Self-Care Skills Discharge Recommendations Plan/Recommendations: Continue POC Therapy Discharge Recommendati: Intermittent Supervision, Post Acute OT Treatment Plan/Plan of Care Treatment,Training & Education: Yes Patient would benefit from OT for education, treatment and training to promote independence in ADL's, mobility, safety and/or upper extremity function for ADL's. Plan of Care: ADL Retraining, Caregiver Training, Functional Mobility, Group E xercise/Act as Ind, UE Neuromus Re-Ed/Coord Treatment Duration: Feb 14, 2019 Frequency: At least 5 of 7 days/Wk (IRF) Estimated Hrs Per Day: 1.5 hours per day Agreement: Yes Rehab Potential: Guarded Time/GCodes Start Time: 09:30 Stop Time: 10:30 Total Time Billed (hr/min): 60 Billed Treatment Time 1, EX 3 (45), FA (15)= 60 SANYA SMALL OTR Jan 22, 2019 11:23 POS
--- NOTE | 2019-01-22 11:28 | Speech Therapy Daily Note ---
Speech Daily Progress Note Subjective Date Seen by Provider: Jan 22, 2019 Time Seen by Provider: 00:30 Patient was resting in his recliner when I entered his room. Patient stated he was tired after his PT and OT sessions. Objective Patient completed safety awareness tasks related to his daily routine with 85% given 10% cues. Assessment Assessment Current Status: Good Progress Treatment Plan Continue Plan of Care Speech Short Term Goals Short Term Goals Short Term Goals 1) The patient will complete memory tasks related to his daily needs at 90% or greater given minimal cues. 2) The patient will complete problem solving tasks related to his daily needs at 90% or greater given minimal cues. 3) The patient will complete safety awareness tasks related to his daily needs at 90% or greater given minimal cues. Speech Vp Integration Goals Vp Integration Goals Patient will improve cognitive-communication necessary for safety and daily living tasks with minimal assist. Speech-Plan Patient/Family Goals Patient/Family Goals: The patient plans on returning home with his significant other post rehab. Treatment Plan Speech Therapy Treatment Plan: Continue Plan of Care Patient is progressing well toward ST goals. Treatment Duration: Jan 24, 2019 Frequency: 5 times per week Estimated Hrs Per Day: .5 hour per day Rehab Potential: Guarded Barriers to Learning: Patient has cognitive deficits, however these are improving with therapy. Pt/Family Agrees to Plan: Yes Safety Risks/Education Teaching Recipient: Patient Teaching Methods: Demonstration, Discussion Response to Teaching: Verbalize Understanding, Return Demonstration Education Topics Provided: Continued safety within his room and communication of wants/needs. Time Speech Therapy Time In: 10:30 Speech Therapy Time Out: 11:00 Total Billed Time: 30 Billed Treatment Time 1, YVON Connor Jan 22, 2019 11:28 POS
--- NOTE | 2019-01-22 11:39 | Progress Note - Urology ---
Progress Note-Urology Progress Notes/Assess & Plan Progress/Assessment & Plan SOME NOCTURNAL ENURESIS NONE DIURNAL, CONTINUE TO OBSERVE Final Diagnosis INCONTINENCE AMADNA BRAVO MD Jan 22, 2019 11:39 POS
--- NOTE | 2019-01-22 14:00 | NUR ---
Met with patient and EMILY/Joelle "Yash [facility] to review Weekly Rehab Team Conference summary. Patient is in agreement to discharge 01/24/19, will partner with patient and Giulia for post discharge care plan and services. Patient will be staying with Giulia at her home, handicap accessible accommodations. She expresses her committment to his care and states she strives to support him to remain as independent as possible. He was involved in [facility] and they would like to resume this service, will explore.
--- NOTE | 2019-01-22 14:56 | Therapy Group Daily Note ---
Therapy Daily Group Note Patient Education Topic Home Safety Exercises LE Seated Exercise, UE Exercise Session Ratio (pt:therapist): 6:2 Goal of Session: Home Safety Strategies, UE/LE Strengthing Goal Met for this Session: Yes Pt Benefit of Group: Contributions to Others, F/U Use of Strategies @Home, Increased Functional Safety, Increased Functional Strength, Improved Cognition, Recognition of Peers, Socialization Other/Notes Pt ambulated to [facility] for OT/PT group. Group consisted of introductions (name, place living, favorite restaurant), socialization, UE/LE seated exercises and home safety. Pt introduced self appropriately and actively listened to peers. Pt was able to remember an exercise and lead group then participated when peers lead an exercise. Pt acknowledged understanding of educational topics by verbalizing own personal story and strategies. After therapy, pt sitting in recliner with call light/phone in reach. All needs met. Start Time: 13:00 Stop Time: 14:10 Total Billed Treatment Time: 70 Total Billed Treatment 1-GRP ARTEMIO MARIE Jan 22, 2019 14:56 POS
[2019-01-22 17:16] VITALS: BP 133/88
[2019-01-22] MEDS: AMITRIPTYLINE 50 MG (ELAVIL) TAB PO SCH (21:35)
[2019-01-23] MEDS: SINEMET 25/100 (CARBIDOPA/LEVODOPA) TAB PO SCH ×9 (00:33→23:51)
[2019-01-23] MEDS: MULTIVIT W/MINERALS TAB (THERAGRAN M) PO SCH (05:27)
[2019-01-23 05:59] VITALS: BP 121/73
[2019-01-23] MEDS: DOCUSATE SODIUM 100 MG (COLACE) CAP PO SCH (08:26)
[2019-01-23] MEDS: POLYETHYLENE GLYCOL 17 GM (MIRALAX) PACK PO SCH ×2 (08:26→19:35)
[2019-01-23] MEDS: SENNA W/DOCUSATE (SENOKOT S) TABLET PO SCH ×2 (08:27→19:36)
[2019-01-23] MEDS: IBUPROFEN TABLET 200 MG TAB PO PRN (08:29)
--- NOTE | 2019-01-23 09:51 | PM&R Progress Note ---
Subjective HPI/CC On Admission Date Seen by Provider: Jan 23, 2019 Time Seen by Provider: 08:15 Subjective/Events-last exam Pt doing very well. Discharge planned for tomorrow. Had a BM this morning. Outpatient PT will. be ordered for him to start after discharge. Conferred with RN Reviewed therapy notes Checked meds and labs Review of Systems General: Fatigue Musculoskeletal: back pain Objective Exam Vital Signs Vital Signs Date Time Temp Pulse Resp B/P (MAP) Pulse Ox O2 Delivery O2 Flow Rate FiO2 01/23/19 20:38 Room Air 01/23/19 16:35 36.6 81 16 120/84 (96) 100 Capillary Refill : General Appearance: No Apparent Distress, WD/WN, Chronically ill, Thin HEENT: PERRL/EOMI, Normal ENT Inspection, Pharynx Normal Neck: Full Range of Motion, Normal Inspection, Non Tender, Supple, Carotid Bruit Respiratory: Chest Non Tender, Lungs Clear, Normal Breath Sounds, No Accessory Muscle Use, No Respiratory Distress Cardiovascular: Regular Rate, Rhythm, No Edema, No Gallop, No JVD, No Murmur, Normal Peripheral Pulses Gastrointestinal: Normal Bowel Sounds, No Organomegaly, No Pulsatile Mass, Non Tender, Soft Back: Decreased Range of Motion Extremity: Normal Capillary Refill, Normal Inspection, Normal Range of Motion (rigidity noted all extremities), Non Tender, No Calf Tenderness, No Pedal Edema Neurologic/Psychiatric: Alert, Oriented x3, No Motor/Sensory Deficits, 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 FIM Transfers Therapy Code Descriptions/Definitions Functional [place] Measure: 0=Not Assessed/NA 4=Minimal Assistance 1=Total Assistance 5=Supervision or Setup 2=Maximal Assistance 6=Modified [place] 3=Moderate Assistance 7=Complete IndependenceSCALE: Activities may be completed with or without assistive devices. 2-Jczkfjpglj-lpujlco completes the activity by him/herself with no assistance from a helper. 5-Set-up or Clean-up Assistance-helper sets up or cleans up; patient completes activity. [place] assists only prior to or following the activity. 4-Supervision or Touching Assistance-helper provides verbal cues and/or touching/steadying and/or contact guard assistance as patient completes activity. Assistance may be provided throughout the activity or intermittently. 3-Partial/Moderate Assistance-helper does LESS THAN HALF the effort. [place] lifts, holds or supports trunk or limbs, but provides less than half the effort. 2-Substantial/Maximal Assistance-helper does MORE THAN HALF the effort. [place] lifts or holds trunk or limbs and provides more than half the effort. 9-Rgzhvqzxr-ydyfup does ALL the effort. Patient does none of the effort to complete the activity. Or, the assistance of 2 or more helpers is required for the patient to complete the activity. If activity was not attempted, code reason: 7-Patient Refused. 9-Not Applicable-not attempted and the patient did not perform the activity before the current illness, exacerbation or injury. 10-Not Attempted due to Environmental Limitations-(lack of equipment, weather restraints, etc.). 88-Not Attempted due to Medical Conditions or Safety Concerns. Roll Left to Right (QC): 4 Sit to Lying (QC): 4 Sit to Stand (QC): 4 Chair/Mwx-rp-Njfft Xfer(QC): 4 (CGA) Car Transfer (QC): 3 (Eboni) Gait Training Does the Patient Walk?: Yes Distance (FIM): 5=526-12 ft Distance: 150' x2; 300' Walk 10 feet (QC): 4 Walk 50 ft with 2 Turns(QC): 4 Walk 150 ft (QC): 4 Walking 10ft/uneven surface-QC: 3 (modA) Gait Persons Needed: 1 Gait Assistive Device: FWW Wheelchair Training Does the Pt Use a Wheelchair?: No Stair Training 1 Step (curb) (QC): 3 (modA) 4 Steps (QC): 88 12 Steps (QC): 88 Balance Picking up an Object (QC): 3 (modA) ADL-Treatment Eating (QC): 6 Oral Hygiene (QC): 07 Shower/Bathe Self (QC): 4 (CGA in stance. Pt completes all areas (excluding back) with IND.) Upper Body Dressing (QC): 3 (Pt doffs back brace and shirt with IND. Pt completes shirt donning with min A for adjusting rolled up shirt in back and mod A for donning back brace. ) Lower Body Dressing (QC): 2 (Pt completes doffing with assist due to pt requiring urination. Pt completes donning new breif and pants with max A with requests for assist, pt requests additional medication. ) On/Off Footwear (QC): 7 Toileting Hygiene (QC): 4 (CGA in stance.) Toilet Transfer (QC): 4 (CGA, use of FWW.) Assessment/Plan Assessment and Plan Assess & Plan/Chief Complaint Assessment: s/p lumbar spine surgery Severe PD with brain stimulator in place Urinary retention s/p in-out cath at [facility] prior to transfer Constipation chronic Smoker Fall risk Hyponatremia Cognitive deficits seem to be improved since minimizing meds Plan: Monitor pain IRF protocol BM regimen Monitor urinary issues may need Urology Monitor confusion DC 01/24/19 (1) Radiculopathy, lumbar region (2) Parkinsons (3) Parkinson's disease with use of electrical brain stimulation (4) COPD (chronic obstructive pulmonary disease) (5) Smoker (6) GERD (gastroesophageal reflux disease) (7) Urinary retention (8) Constipation (9) Chronic pain (10) Cognitive deficit due to Parkinson's disease (11) Risk for falls (12) Moderately thin body habitus in adult ENMANUEL HARRIS DO Jan 23, 2019 09:51 POS
--- NOTE | 2019-01-23 09:55 | Physical Therapy Daily Note ---
PT Daily Note-Current Subjective pt standing at toilet just finishing urinating pre-tx as PT walked in. Pt is alone, is not holding on to walker or rails for support, has no shoes on and no back brace in place. pt reports 5/10 pain in his back at this time. pt's chair alarm was set but had not sounded as pt left his chair. Back brace donned and socks and shoes donned for PT. Appearance pt in recliner post-tx with call light, room phone, tray table in reach with all needs met at this time and new chair alarm set. Mental Status Patient Orientation: Person, Confused, Place, Time, Situation post tx, the pt was describing to this PT how his bed is gas powered and can run on power or gas. Transfers SCALE: Activities may be completed with or without assistive devices. 4-Jitzralefd-eggfdff completes the activity by him/herself with no assistance from a helper. 5-Set-up or Clean-up Assistance-helper sets up or cleans up; patient completes activity. [place] assists only prior to or following the activity. 4-Supervision or Touching Assistance-helper provides verbal cues and/or touching/steadying and/or contact guard assistance as patient completes activity. Assistance may be provided throughout the activity or intermittently. 3-Partial/Moderate Assistance-helper does LESS THAN HALF the effort. [place] lifts, holds or supports trunk or limbs, but provides less than half the effort. 2-Substantial/Maximal Assistance-helper does MORE THAN HALF the effort. [place] lifts or holds trunk or limbs and provides more than half the effort. 5-Wlllwussu-fzeacq does ALL the effort. Patient does none of the effort to complete the activity. Or, the assistance of 2 or more helpers is required for the patient to complete the activity. If activity was not attempted, code reason: 7-Patient Refused. 9-Not Applicable-not attempted and the patient did not perform the activity before the current illness, exacerbation or injury. 10-Not Attempted due to Environmental Limitations-(lack of equipment, weather restraints, etc.). 88-Not Attempted due to Medical Conditions or Safety Concerns. Roll Left & Right (QC): 6 Sit to Lying (QC): 4 (SBA) Lying to Sitting/Side of Bed(Q: 4 (SBA) Sit to Stand (QC): 4 (SBA) Chair/Chi-zi-Yrvvm Xfer(QC): 4 (SBA) Car Transfer (QC): 4 (CGA) pt is indep for rolling in bed and SBA for all sit<-> stands and supine<->sit and transfer. Pt is CGA for car transfer. Weight Bearing Right Lower Extremity: Right Full Weight Bearing Left Lower Extremity: Left Full Weight Bearing Back Support Brace Gait Training Does the Patient Walk?: Yes Distance: 200',120',250' Walk 10 feet (QC): 4 (SBA) Walk 50 ft with 2 Turns(QC): 4 (CGA) Walk 150 ft (QC): 4 (SBA) Walking 10ft/uneven surface-QC: 4 (SBA) Gait Assistive Device: FWW pt only has 3 instances of his feet crossing over midline today although he continues to walk almost heel to toe with scissoring gait. Pt broke down his turns more today and was able to turn safer but still requires CGA for turning as he stepped on his own foot during one turn. Pt is SBA for ambulating up to 250' today including 50 feet with atleast 2 turns and 10' over an uneven surface. Wheelchair Training Does the Pt Use a Wheelchair?: No Stair Training Stair Training: Handrails/: 2 handrails #of Steps: 12 1 Step (curb) (QC): 4 (SBA) 4 Steps (QC): 4 (CGA) 12 Steps (QC): 4 (CGA) Stairs: Pattern: Reciprocal pt able to step over curb step SBA. For 4 steps and 12 steps the pt is contact guard with a reciprocal pattern for ascending and descending and goes between using 1 handrail and using 2 handrails. Balance Picking up an Object (QC): 4 (SBA) Exercises NuStep Minutes: 15 NuStep Workload: 5 Treatments pt performed skilled ambulation training, transfer training, bed mobility training, stair training, functional LE endurance training, and education. Assessment Current Status: Fair Progress pt is improving with the scissoring gait pattern but continues to have a very NBOS. Pt shows signs of very weak hip musculature with B/L knees falling inward with a lateral hip jet B/L with ambulation. Pt continues to be unaware of his safety and is up on his own without holding on to anything and without donning his brace, pt requires multiple cues for hand placement for safety for sit<- >stands, and to stay inside walker when going to sit. PT Short Term Goals Short Term Goals Time Frame: Jan 24, 2019 PT Prison Goals Part Maker Goals PT Part Maker Goals Time Frame: Feb 07, 2019 Roll Left & Right (QC): 4 Sit to Lying (QC): 4 Lying-Sitting on Side/Bed(QC): 4 Sit to Stand (QC): 4 Chair/Qxq-rr-Vvmyf Xfer(QC): 4 Toilet Transfer (QC): 6 Car Transfer (QC): 4 Does the Patient Walk: Yes Walk 10 feet (QC): 4 Walk 50ft with 2 Turns (QC): 4 Walk 150 ft (QC): 4 Walking 10ft on Uneven Surface: 4 1 Step (curb) (QC): 4 4 Steps (QC): 4 12 Steps (QC): 88 Picking up an Object (QC): 4 (CGA) Does the Pt use WC or Scooter?: No Type: N/A Type: N/A PT Plan Problem List Problem List: Activity Tolerance, Functional Strength, Safety, Balance, Gait, Transfer, Bed Mobility, ROM Treatment/Plan Treatment Plan: Continue Plan of Care Treatment Plan: Bed Mobility, Concurrent Therapy, Education, Functional Activity Oniel, Functional Strength, Group Therapy, Gait, Safety, Therapeutic Ex ercise, Transfers Treatment Duration: Feb 07, 2019 Frequency: At least 5 of 7 days/Wk (IRF) Estimated Hrs Per Day: 1.5 hours per day Patient and/or Family Agrees t: Yes Safety Risks/Education Patient Education: Gait Training, Transfer Techniques, Steps, Reviewed Precautions, Correct Positioning, Reviewed Don/Doff Brace, Safety Issues Teaching Recipient: Patient Teaching Methods: Demonstration, Discussion Response to Teaching: Return Demonstration, Reinforcement Needed Time/GCodes Time In: 0900 Time Out: 1000 Total Billed Treatment Time: 60 Total Billed Treatment 1 visit FA 40' GT 20' MARY ALEXIS PT Jan 23, 2019 09:55 POS
--- NOTE | 2019-01-23 10:04 | Speech Therapy Daily Note ---
Speech Daily Progress Note Subjective Date Seen by Provider: Jan 23, 2019 Time Seen by Provider: 00:30 Patient states he is ready to go home tomorrow. Objective Patient completed problem solving tasks related to his daily needs when he returns home with 90% without cues. Assessment Assessment Current Status: Good Progress Treatment Plan Discontinue ST, Goals Met Speech Short Term Goals Short Term Goals Short Term Goals 1) The patient will complete memory tasks related to his daily needs at 90% or greater given minimal cues. 2) The patient will complete problem solving tasks related to his daily needs at 90% or greater given minimal cues. 3) The patient will complete safety awareness tasks related to his daily needs at 90% or greater given minimal cues. Speech Fpc Goals Fpc Goals Patient will improve cognitive-communication necessary for safety and daily living tasks with minimal assist. Speech-Plan Patient/Family Goals Patient/Family Goals: Patient is scheduled to return to his home with his significant other tomorrow. He will be receiving outside services as needed. Treatment Plan Speech Therapy Treatment Plan: Discontinue ST, Goals Met Patient has made good progress with skilled therapies. Treatment Duration: Jan 24, 2019 Frequency: 5 times per week Estimated Hrs Per Day: .5 hour per day Rehab Potential: Guarded Barriers to Learning: Patient has cognitive deficits, however he has improved with therapy Pt/Family Agrees to Plan: Yes Safety Risks/Education Teaching Recipient: Patient Teaching Methods: Demonstration, Discussion Response to Teaching: Verbalize Understanding, Return Demonstration Education Topics Provided: Continued safety upon his return home. Time Speech Therapy Time In: 08:30 Speech Therapy Time Out: 09:00 Total Billed Time: 30 Billed Treatment Time 1, SLTS No QUALITY CODES: EXPRESSION OF IDEAS/WANTS: 4 UNDERSTANDING VERBAL CONTENT: 4 BRIEF INTERVIEW MENTAL STATUS: YES REPETITION OF 3 WORDS: 3 TEMPORAL ORIENTATION: YEAR: CORRECT, MONTH: CORRECT, DAY: CORRECT RECALL: SOCK: YES, COLOR: YES, BED: YES WITH CUE MEMORY/RECALL ABILITY: SEASON, LOCATION OF ROOM, STAFF NAMES, THAT HE IS IN THE [facility] Jan 23, 2019 10:04 POS
--- NOTE | 2019-01-23 10:30 | NUR ---
Pastoral care visit.
--- NOTE | 2019-01-23 10:36 | Progress Note - Urology ---
Progress Note-Urology Progress Notes/Assess & Plan Progress/Assessment & Plan VOIDING WELL. DRY DAY AND NIGHT. WE WILL SEE PRN Final Diagnosis INCONTINENCE AMANDA BRAVO MD Jan 23, 2019 10:36 POS
--- NOTE | 2019-01-23 11:30 | NUR ---
Dressing change to abdominal and back incisions (X3). Incisions cleansed with Alcohol pads. AllKare applied to surrounding tissue. Covered with [place] dressings. Incisions are well approximated with josh intact. No drainage noted.
--- NOTE | 2019-01-23 12:05 | Occupational Ther Daily Note ---
OT Current Status-Daily Note Subjective Pt seen in recliner chair, states no current pain. Pt agreeable to OT tx session. Mental Status/Objective Patient Orientation: Normal For Age ADL-Treatment Therapy Code Descriptions/Definitions Functional [place] Measure: 0=Not Assessed/NA 4=Minimal Assistance 1=Total Assistance 5=Supervision or Setup 2=Maximal Assistance 6=Modified [place] 3=Moderate Assistance 7=Complete IndependenceSCALE: Activities may be completed with or without assistive devices. 1-Vqzswrkhvx-zrpjiop completes the activity by him/herself with no assistance from a helper. 5-Set-up or Clean-up Assistance-helper sets up or cleans up; patient completes activity. [place] assists only prior to or following the activity. 4-Supervision or Touching Assistance-helper provides verbal cues and/or touching/steadying and/or contact guard assistance as patient completes activity. Assistance may be provided throughout the activity or intermittently. 3-Partial/Moderate Assistance-helper does LESS THAN HALF the effort. [place] lifts, holds or supports trunk or limbs, but provides less than half the effort. 2-Substantial/Maximal Assistance-helper does MORE THAN HALF the effort. [place] lifts or holds trunk or limbs and provides more than half the effort. 6-Jzysdwycp-acxbbx does ALL the effort. Patient does none of the effort to complete the activity. Or, the assistance of 2 or more helpers is required for the patient to complete the activity. If activity was not attempted, code reason: 7-Patient Refused. 9-Not Applicable-not attempted and the patient did not perform the activity before the current illness, exacerbation or injury. 10-Not Attempted due to Environmental Limitations-(lack of equipment, weather restraints, etc.). 88-Not Attempted due to Medical Conditions or Safety Concerns. Eating (QC): 6 (Opens and drinks soda pop) Oral Hygiene (QC): 6 (Per pt report, pt completed soaking and adhering dentures this morning. Pt demonstrates ability to place tooth paste onto toothbrush with good motor coordination.) Shower/Bathe Self (QC): 4 (Pt completes with increased dynamic sitting balance. Completes with CGA/ intermittent assist while in stance to clean bottom/ jesús area. Pt able to reach all areas.) Upper Body Dressing (QC): 4 (Min cues for back brace donning. Pt completes UB dressing with IND.) Lower Body Dressing (QC): 4 (Pt completes with safety, able to complete with SUP.) Toileting Hygiene (QC): 6 (Pt completes thoroughly and with IND.) Toilet Transfer (QC): 6 (Pt completes with IND, states has grab bars at home. ) On/ off footwear: 6: Dons socks and footwear with IND EOB. Other Treatment Pt completes ADLs in room, completes sponge bath and dressing EOB with intermittent assist during pant donning for stability/ core balance. Pt gathers dirty clothes, ambulates with FWW while OT carries dirty clothing to laundry. Pt completes laundry with min cues for washing machine controls, returns to room a nd sits in recliner, call light in reach, all needs met, safety chair alarm set. Education OT Patient Education: Correct positioning, Modified ADL techniques, Purpose of tx/functional activities, Safety issues Teaching Recipient: Patient Teaching Methods: Demonstration, Discussion Response to Teaching: Verbalize Understanding, Return Demonstration OT Short Term Goals Short Term Goals Time Frame: Jan 31, 2019 OT Skilled Nursing Goals Events Traffic Controller Goals Time Frame: Feb 14, 2019 Eating (QC): 6 (met) Oral Hygiene (QC): 6 (met) Toileting Hygiene (QC): 6 (met) Shower/Bathe Self (QC): 5 Upper Body Dressing (QC): 6 Lower Body Dressing (QC): 6 On/Off Footwear (QC): 6 (met) Additional Goals: 1-Demonstrate ADL Tasks, 2-Verbalize Understanding, 3- ImproveStrength/Oniel 1=Demonstrate adherence to instructed precautions during ADL tasks. 2=Patient will verbalize/demonstrate understanding of assistive devices/modifications for ADL. 3=Patient will improve strength/tolerance for activity to enable patient to perform ADL's. OT Education/Plan Problem List/Assessment Assessment: Decreased Activ Tolerance, Decreased UE Strength, Impaired Funct Balance, Impaired I ADL's, Impaired Self-Care Skills Discharge Recommendations Plan/Recommendations: Continue POC Treatment Plan/Plan of Care Treatment,Training & Education: Yes Patient would benefit from OT for education, treatment and training to promote independence in ADL's, mobility, safety and/or upper extremity function for ADL's. Plan of Care: ADL Retraining, Caregiver Training, Functional Mobility, Group Exercise/Act as Ind, UE Neuromus Re-Ed/Coord Treatment Duration: Feb 14, 2019 Frequency: At least 5 of 7 days/Wk (IRF) Estimated Hrs Per Day: 1.5 hours per day Agreement: Yes Rehab Potential: Guarded Time/GCodes Start Time: 10:00 Stop Time: 11:00 Total Time Billed (hr/min): 60 Billed Treatment Time 1, ADL 3 (45), FA (15)= 60 SANYA SMALL OTR Jan 23, 2019 12:05 POS
[2019-01-23] MEDS: ACETAMINOPHEN 500 MG TAB (TYLENOL) PO PRN (12:27)
--- NOTE | 2019-01-23 13:26 | Occupational Ther Daily Note ---
OT Current Status-Daily Note Subjective Pt alert, sitting in recliner. Pt agrees to therapy. Visitor present in room. Mental Status/Objective Patient Orientation: Person, Place, Time, Situation ADL-Treatment Therapy Code Descriptions/Definitions Functional [place] Measure: 0=Not Assessed/NA 4=Minimal Assistance 1=Total Assistance 5=Supervision or Setup 2=Maximal Assistance 6=Modified [place] 3=Moderate Assistance 7=Complete IndependenceSCALE: Activities may be completed with or without assistive devices. 7-Fsdwyrvygp-drkizjo completes the activity by him/herself with no assistance from a helper. 5-Set-up or Clean-up Assistance-helper sets up or cleans up; patient completes activity. [place] assists only prior to or following the activity. 4-Supervision or Touching Assistance-helper provides verbal cues and/or touchin g/steadying and/or contact guard assistance as patient completes activity. Assistance may be provided throughout the activity or intermittently. 3-Partial/Moderate Assistance-helper does LESS THAN HALF the effort. [place] lifts, holds or supports trunk or limbs, but provides less than half the effort. 2-Substantial/Maximal Assistance-helper does MORE THAN HALF the effort. [place] lifts or holds trunk or limbs and provides more than half the effort. 2-Yykcxmpxe-oihwyk does ALL the effort. Patient does none of the effort to complete the activity. Or, the assistance of 2 or more helpers is required for the patient to complete the activity. If activity was not attempted, code reason: 7-Patient Refused. 9-Not Applicable-not attempted and the patient did not perform the activity before the current illness, exacerbation or injury. 10-Not Attempted due to Environmental Limitations-(lack of equipment, weather restraints, etc.). 88-Not Attempted due to Medical Conditions or Safety Concerns. Other Treatment Pt is having difficulty with utilizing eating utensils due to tremors and decreased hand coordination. Discussed different types of 'steady spoons' on the market for Parkinson's and hand tremors to steady spoon bowl when eating. Pt given a steady spoon, angled fork and plate guard to try in room . After therapy, pt sitting in room. PT took over care of pt. All needs met. OT Short Term Goals Short Term Goals Time Frame: Jan 31, 2019 OT Emission Specialist Goals Emission Specialist Goals Time Frame: Feb 14, 2019 Eating (QC): 6 (met) Oral Hygiene (QC): 6 (met) Toileting Hygiene (QC): 6 (met) Shower/Bathe Self (QC): 5 Upper Body Dressing (QC): 6 Lower Body Dressing (QC): 6 On/Off Footwear (QC): 6 (met) Additional Goals: 1-Demonstrate ADL Tasks, 2-Verbalize Understanding, 3- ImproveStrength/Oniel 1=Demonstrate adherence to instructed precautions during ADL tasks. 2=Patient will verbalize/demonstrate understanding of assistive devices/modifications for ADL. 3=Patient will improve strength/tolerance for activity to enable patient to perform ADL's. OT Education/Plan Problem List/Assessment Assessment: Impaired Self-Care Skills Discharge Recommendations Plan/Recommendations: Continue POC Treatment Plan/Plan of Care Patient would benefit from OT for education, treatment and training to promote independence in ADL's, mobility, safety and/or upper extremity function for ADL's. Plan of Care: ADL Retraining, Caregiver Training, Functional Mobility, Group Exercise/Act as Ind, UE Neuromus Re-Ed/Coord Treatment Duration: Feb 14, 2019 Frequency: At least 5 of 7 days/Wk (IRF) Estimated Hrs Per Day: 1.5 hours per day Agreement: Yes Rehab Potential: Guarded Time/GCodes Start Time: 12:30 Stop Time: 12:45 Total Time Billed (hr/min): 15 Billed Treatment Time 1 visit-FA 1 (15 min) ARTEMIO MARIE Jan 23, 2019 13:25 POS
--- NOTE | 2019-01-23 14:15 | Physical Therapy Daily Note ---
PT Daily Note-Current Subjective pt in recliner pre-tx with girlfriend present for duration of session. pt reports no pain at this time that he just had pain meds. Appearance pt in recliner post-tx with call light, room phone, tray table in reach with all needs met at this time. Mental Status Patient Orientation: Person, Place, Time, Situation Transfers SCALE: Activities may be completed with or without assistive devices. 8-Ggtyedvojb-foitagl completes the activity by him/herself with no assistance from a helper. 5-Set-up or Clean-up Assistance-helper sets up or cleans up; patient completes activity. [place] assists only prior to or following the activity. 4-Supervision or Touching Assistance-helper provides verbal cues and/or touching/steadying and/or contact guard assistance as patient completes activity. Assistance may be provided throughout the activity or intermittently. 3-Partial/Moderate Assistance-helper does LESS THAN HALF the effort. [place] lifts, holds or supports trunk or limbs, but provides less than half the effort. 2-Substantial/Maximal Assistance-helper does MORE THAN HALF the effort. [place] lifts or holds trunk or limbs and provides more than half the effort. 2-Xoaxhbqtz-kaphcf does ALL the effort. Patient does none of the effort to com plete the activity. Or, the assistance of 2 or more helpers is required for the patient to complete the activity. If activity was not attempted, code reason: 7-Patient Refused. 9-Not Applicable-not attempted and the patient did not perform the activity before the current illness, exacerbation or injury. 10-Not Attempted due to Environmental Limitations-(lack of equipment, weather restraints, etc.). 88-Not Attempted due to Medical Conditions or Safety Concerns. Sit to Stand (QC): 4 (SBA) Weight Bearing Right Lower Extremity: Right Full Weight Bearing Left Lower Extremity: Left Full Weight Bearing Back Support Brace Gait Training Distance: 500' Walk 10 feet (QC): 4 (sba) Walk 50 ft with 2 Turns(QC): 4 (SBA) Walk 150 ft (QC): 4 (SBA) Gait Assistive Device: FWW pt this session goes in and out of scissoring gait and a normal wider JACKIE for ambulation. Wheelchair Training Does the Pt Use a Wheelchair?: No Exercises Seated Therapy Exercises: Ankle pumps, Long arc quads, Hip flexion, Hip abd/add Seated Reps: 30 (15reps 2 sets) Treatments pt performed transfer training, functional LE strengthening, skilled ambulation training, and education Assessment Current Status: Good Progress pt able to take turns this session without stepping on his own feet or any LOB this session. Pt continues to have mod scissor gait that causes a potential fall risk. PT Short Term Goals Short Term Goals Time Frame: Jan 24, 2019 PT Magnetic Doctor Goals Magnetic Doctor Goals PT Magnetic Doctor Goals Time Frame: Feb 07, 2019 Roll Left & Right (QC): 4 Sit to Lying (QC): 4 Lying-Sitting on Side/Bed(QC): 4 Sit to Stand (QC): 4 Chair/Rnt-ph-[place] Xfer(QC): 4 Toilet Transfer (QC): 6 Car Transfer (QC): 4 Does the Patient Walk: Yes Walk 10 feet (QC): 4 Walk 50ft with 2 Turns (QC): 4 Walk 150 ft (QC): 4 Walking 10ft on Uneven Surface: 4 1 Step (curb) (QC): 4 4 Steps (QC): 4 12 Steps (QC): 88 Picking up an Object (QC): 4 (CGA) Does the Pt use WC or Scooter?: No Type: N/A Type: N/A PT Plan Problem List Problem List: Activity Tolerance, Functional Strength, Safety, Balance, Gait, Transfer, Bed Mobility, ROM Treatment/Plan Treatment Plan: Continue Plan of Care Treatment Plan: Bed Mobility, Concurrent Therapy, Education, Functional Activity Oniel, Functional Strength, Group Therapy, Gait, Safety, Therapeutic Exercise, Transfers Treatment Duration: Feb 07, 2019 Frequency: At least 5 of 7 days/Wk (IRF) Estimated Hrs Per Day: 1.5 hours per day Patient and/or Family Agrees t: Yes Safety Risks/Education Patient Education: Gait Training, Transfer Techniques, Correct Positioning, Safety Issues Teaching Recipient: Patient Teaching Methods: Demonstration, Discussion Response to Teaching: Return Demonstration, Reinforcement Needed Time/GCodes Time In: 1245 Time Out: 1300 Total Billed Treatment Time: 15 Total Billed Treatment 1 visit 15' EX MARY ALEXIS PT Jan 23, 2019 14:14 POS
[2019-01-23 16:35] VITALS: BP 120/84
--- NOTE | 2019-01-23 16:59 | NUR ---
Met with patient and Giulia this p.m. to finalize discharge for tomorrow. Contacted [facility], their schedule is fluctuating right now with the holiday next week. Giulia stated that early afternoons are best for patient relative to Parkinsons symptoms, offered an 0800 which they did not accept. Concluded insurance underwriter sales will provide orders directly to [facility] and that patient/SO can make their appointments on their own. Giulia requested therapy 5 days per week, staff did indicate they could do this providing scheduling was available. OP PT: PH: [phone] FX: [phone] Attention Haily Patient/Giulia do not want [facility] services. Therapy has recommended a hip kit for patient, this is a private pay item for them to pursue. Updated Giulia's address on demographics, she has her own place but does stay with patient, they move between her home and his intermittently. Finalize tomorrow.
[2019-01-23] MEDS: AMITRIPTYLINE 50 MG (ELAVIL) TAB PO SCH (20:36)
[2019-01-23] MEDS ORDERED: ACHD5005 PO (22:13)
[2019-01-24] MEDS: SINEMET 25/100 (CARBIDOPA/LEVODOPA) TAB PO SCH ×4 (03:24→11:28)
[2019-01-24 05:55] VITALS: BP 145/93
[2019-01-24] MEDS: MULTIVIT W/MINERALS TAB (THERAGRAN M) PO SCH (05:58)
[2019-01-24] MEDS: DOCUSATE SODIUM 100 MG (COLACE) CAP PO SCH (09:02)
[2019-01-24] MEDS: POLYETHYLENE GLYCOL 17 GM (MIRALAX) PACK PO SCH (09:02)
[2019-01-24] MEDS: SENNA W/DOCUSATE (SENOKOT S) TABLET PO SCH (09:02)
[2019-01-24] MEDS: IBUPROFEN TABLET 200 MG TAB PO PRN (09:06)
--- NOTE | 2019-01-24 09:22 | Therapy Team Discharge Summary ---
Therapy Discharge Summary Discharge Recommendations Date of Discharge Occupational Therapy Impaired Self-Care Skills Speech-Language Pathology Patient was admitted to the ARU s/p spine surgery. Patient was given the SLUMS with a moderate deficit noted in cognitive function. The patient was seen for improving memory, problem solving and safety awareness. The patient progressed and met ST goals. Patient is discharging to his home with his significant other today. He is being discharged from [facility] at this time. PT Penitentiary Goals Infant Caregiver Goals PT Penitentiary Goals Time Frame: Feb 07, 2019 Roll Left to Right (QC): 4 Sit to Lying (QC): 4 Lying-Sitting on Side/Bed(QC): 4 Sit to Stand (QC): 4 Chair/Zgw-hw-Ojpcn Xfer(QC): 4 Car Transfer (QC): 4 Does the Patient Walk: Yes Distance: 350' Walk 10 feet (QC): 4 Walk 10ft-Uneven Surface(QC): 4 Walk 50ft with 2 Turns (QC): 4 Walk 150 ft (QC): 4 Gait Assistive Device: FWW Does the Pt use WC or Scooter?: No 1 Step (curb) (QC): 4 4 Steps (QC): 4 12 Steps (QC): 88 Picking up an Object (QC): 4 (CGA) OT Infant Caregiver Goals Penitentiary Goals Time Frame: Feb 14, 2019 Eating (QC): 6 (met) Oral Hygiene (QC): 6 (met) Shower/Bathe Self (QC): 5 Upper Body Dressing (QC): 6 Lower Body Dressing (QC): 6 On/Off Footwear (QC): 6 (met) Toileting Hygiene (QC): 6 (met) Toilet/Commode Transfer (QC): 6 Additional Goals: 1-Demonstrate ADL Tasks, 2-Verbalize Understanding, 3- ImproveStrength/Oniel 1=Demonstrate adherence to instructed precautions during ADL tasks. 2=Patient will verbalize/demonstrate understanding of assistive devices/modifications for ADL. 3=Patient will improve strength/tolerance for activity to enable patient to perform ADL's. Speech Penitentiary Goals Infant Caregiver Goals Patient will improve cognitive-communication necessary for safety and daily living tasks with minimal assist. Met YVON ESTRADA Jan 24, 2019 09:22 POS
--- NOTE | 2019-01-24 09:31 | Therapy Team Discharge Summary ---
Therapy Discharge Summary Discharge Recommendations Date of Discharge Physical Therapy Patient came to rehab with L5-S1 AP fusion with revision hardware. Upon evaluation patient performed bed mobility with min assist, supine <-> sit with mod to max assist, sit <-> stand with min assist, transfers with min assist, car transfer min assist, ambulates 120' with a rolling walker with mod assist (including 50' with at least 2 turns of 90 degrees and 10' over an uneven surface), can go up and down 1 step using a rolling walker with mod assist, and can cook pickled meat an object from the floor with mod assist. Patient has been performing bed mobility and transfer training, balance and endurance training, functional strengthening, stair training, gait training, and education. 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 Now, patient performs bed mobility and transfers with SBA, car transfer CGA, ambulates 250' with a rolling walker with CGA/SBA, can go up and down 12 steps using 2 handrails with CGA, and can cook pickled meat an object from the floor with SBA. Patient is discharging from this facility today and will be discharged from PT at this time. Occupational Therapy Impaired Self-Care Skills PT Nursing Home Goals Nematologist Goals PT Nematologist Goals Time Frame: Feb 07, 2019 Roll Left to Right (QC): 4 Sit to Lying (QC): 4 Lying-Sitting on Side/Bed(QC): 4 Sit to Stand (QC): 4 Chair/Evi-ob-Oybrx Xfer(QC): 4 Car Transfer (QC): 4 Does the Patient Walk: Yes Distance: 350' Walk 10 feet (QC): 4 Walk 10ft-Uneven Surface(QC): 4 Walk 50ft with 2 Turns (QC): 4 Walk 150 ft (QC): 4 Gait Assistive Device: FWW Does the Pt use WC or Scooter?: No 1 Step (curb) (QC): 4 4 Steps (QC): 4 12 Steps (QC): 88 Picking up an Object (QC): 4 (CGA) OT Nursing Home Goals Nematologist Goals Time Frame: Feb 14, 2019 Eating (QC): 6 (met) Oral Hygiene (QC): 6 (met) Shower/Bathe Self (QC): 5 Upper Body Dressing (QC): 6 Lower Body Dressing (QC): 6 On/Off Footwear (QC): 6 (met) Toileting Hygiene (QC): 6 (met) Toilet/Commode Transfer (QC): 6 Additional Goals: 1-Demonstrate ADL Tasks, 2-Verbalize Understanding, 3- ImproveStrength/Oniel 1=Demonstrate adherence to instructed precautions during ADL tasks. 2=Patient will verbalize/demonstrate understanding of assistive devices/modifications for ADL. 3=Patient will improve strength/tolerance for activity to enable patient to perform ADL's. Speech Nursing Home Goals Nursing Home Goals Patient will improve cognitive-communication necessary for safety and daily living tasks with minimal assist. Met MARY ALEXIS PT Jan 24, 2019 09:31 POS
--- NOTE | 2019-01-24 10:17 | Discharge Summary ---
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 Urinary retention s/p in-out cath at [facility] prior to transfer Constipation chronic Smoker Fall risk Hyponatremia Cognitive deficits seem to be improved since minimizing meds Plan: Monitor pain IRF protocol BM regimen Monitor urinary issues may need Urology Monitor confusion DC 01/24/19 (1) Radiculopathy, lumbar region (2) Parkinsons (3) Parkinson's disease with use of electrical brain stimulation (4) COPD (chronic obstructive pulmonary disease) (5) Smoker (6) GERD (gastroesophageal reflux disease) (7) Urinary retention (8) Constipation (9) Chronic pain (10) Cognitive deficit due to Parkinson's disease (11) Risk for falls (12) Moderately thin body habitus in adult Discharge Summary Discharge Physical Examination Allergies: Coded Allergies: No Known Drug Allergies (Unverified , 01/17/19) Vitals & I&Os Vital Signs Date Time Temp Pulse Resp B/P (MAP) Pulse Ox O2 Delivery O2 Flow Rate FiO2 01/24/19 11:45 36.6 85 16 145/93 97 Room Air General Appearance: Alert, Oriented X3, Cooperative Respiratory: Clear to Auscultation Cardiovascular: Regular Rate Neuro: Normal Gait, Normal Speech, Strength at 5/5 X4 Ext Psych/Mental Status: Mental Status NL, Mood NL Hospital Course Was the Problem List Reviewed?: Yes Hospital Course: Pt had an uneventful hospital course for 7 days after an extensive lumbar spine surgery in the severity of his Parkinson's requiring brain stimulator 14 years ago required slower recovery and intense rehab and ultimately was able to return home with his oral pathologist. Pt was able to decrease the amount of pain medication which helped the confusion and his cognitive deficit and overallfelt like he benefited from rehab. He returned to near prior level of functioning with the use of a walker and with have outpatient therapy. Labs (last 24 hrs) Laboratory Tests 01/18/19 05:50: White Blood Count 6.4, Red Blood Count 3.45L, Hemoglobin 11.1L, Hematocrit 34L, Mean Corpuscular Volume 97, Mean Corpuscular Hemoglobin 32, Mean Corpuscular Hemoglobin Concent 33, Red Cell Distribution Width 12.7, Platelet Count 233, Mean Platelet Volume 10.3, Neutrophils (%) (Auto) 56, Lymphocytes (%) (Auto) 26, Monocytes (%) (Auto) 15H, Eosinophils (%) (Auto) 3, Basophils (%) (Auto) 0, Neutrophils # (Auto) 3.6, Lymphocytes # (Auto) 1.6, Monocytes # (Auto) 0.9, Eosinophils # (Auto) 0.2, Basophils # (Auto) 0.0, Sodium Level 133L, Potassium Level 3.7, Chloride Level 99, Carbon Dioxide Level 23, Anion Gap 11, Blood Urea Nitrogen 14, Creatinine 0.69, Estimat Glomerular Filtration Rate > 60, BUN/Creatinine Ratio 20, Glucose Level 99, Calcium Level 9.5, Corrected Calcium 9.8, Total Bilirubin 0.6, Aspartate Amino Transf (AST/SGOT) 21, Alanine Aminotransferase (ALT/SGPT) 7, Alkaline Phosphatase 84, Total Protein 6.1L, Albumin 3.6 01/20/19 05:05: White Blood Count 6.8, Red Blood Count 3.73L, Hemoglobin 12.1L, Hematocrit 36L, Mean Corpuscular Volume 98, Mean Corpuscular Hemoglobin 32, Mean Corpuscular Hemoglobin Concent 33, Red Cell Distribution Width 12.8, Platelet Count 342, Mean Platelet Volume 9.2, Neutrophils (%) (Auto) 55, Lymphocytes (%) (Auto) 25, Monocytes (%) (Auto) 14H, Eosinophils (%) (Auto) 6, Basophils (%) (Auto) 0, Neutrophils # (Auto) 3.7, Lymphocytes # (Auto) 1.7, Monocytes # (Auto) 0.9, Eosinophils # (Auto) 0.4H, Basophils # (Auto) 0.0, Sodium Level 138, Potassium Level 3.8, Chloride Level 101, Carbon Dioxide Level 26, Anion Gap 11, Blood Urea Nitrogen 21H, Creatinine 0.83, Estimat Glomerular Filtration Rate > 60, BUN/Creatinine Ratio 25, Glucose Level 99, Calcium Level 9.9, Corrected Calcium 10.1, Total Bilirubin 0.5, Aspartate Amino Transf (AST/SGOT) 17, Alanine Ami notransferase (ALT/SGPT) 9, Alkaline Phosphatase 95, Total Protein 6.5, Albumin 3.8 01/21/19 05:45: Urine Color YELLOW, Urine Clarity CLEAR, Urine pH 7.0, Urine Specific [place] 1.020, Urine Protein NEGATIVE, Urine Glucose (UA) NEGATIVE, Urine Ketones NEGATIVE, Urine Nitrite NEGATIVE, Urine Bilirubin NEGATIVE, Urine Urobilinogen 1.0, Urine Leukocyte Esterase NEGATIVE, Urine RBC (Auto) TRACE-I, Urine RBC 0-2, Urine WBC NONE, Urine Squamous Epithelial Cells 0-2, Urine Crystals PRESENTH, Urine Amorphous Sediment FEW RONALDO URATESH, Urine Bacteria NEGATIVE, Urine Casts NONE, Urine Mucus NEGATIVE, Urine Culture Indicated NO Pending Labs Laboratory Tests 01/18/19 05:50: White Blood Count 6.4, Red Blood Count 3.45, Hemoglobin 11.1, Hematocrit 34, Mean Corpuscular Volume 97, Mean Corpuscular Hemoglobin 32, Mean Corpuscular Hemoglobin Concent 33, Red Cell Distribution Width 12.7, Platelet Count 233, Mean Platelet Volume 10.3, Neutrophils (%) (Auto) 56, Lymphocytes (%) (Auto) 26, Monocytes (%) (Auto) 15, Eosinophils (%) (Auto) 3, Basophils (%) (Auto) 0, Neutrophils # (Auto) 3.6, Lymphocytes # (Auto) 1.6, Monocytes # (Auto) 0.9, Eosinophils # (Auto) 0.2, Basophils # (Auto) 0.0, Sodium Level 133, Potassium Level 3.7, Chloride Level 99, Carbon Dioxide Level 23, Anion Gap 11, Blood Urea Nitrogen 14, Creatinine 0.69, Estimat Glomerular Filtration Rate > 60, BUN/Creatinine Ratio 20, Glucose Level 99, Calcium Level 9.5, Corrected Calcium 9.8, Total Bilirubin 0.6, Aspartate Amino Transf (AST/SGOT) 21, Alanine Aminotransferase (ALT/SGPT) 7, Alkaline Phosphatase 84, Total Protein 6.1, Albumin 3.6 01/20/19 05:05: White Blood Count 6.8, Red Blood Count 3.73, Hemoglobin 12.1, Hematocrit 36, Mean Corpuscular Volume 98, Mean Corpuscular Hemoglobin 32, Mean Corpuscular Hemoglobin Concent 33, Red Cell Distribution Width 12.8, Platelet Count 342, Mean Platelet Volume 9.2, Neutrophils (%) (Auto) 55, Lymphocytes (%) (Auto) 25, Monocytes (%) (Auto) 14, Eosinophils (%) (Auto) 6, Basophils (%) (Auto) 0, Neutrophils # (Auto) 3.7, Lymphocytes # (Auto) 1.7, Monocytes # (Auto) 0.9, Eosinophils # (Auto) 0.4, Basophils # (Auto) 0.0, Sodium Level 138, Potassium Level 3.8, Chloride Level 101, Carbon Dioxide Level 26, Anion Gap 11, Blood Urea Nitrogen 21, Creatinine 0.83, Estimat Glomerular Filtration Rate > 60, BUN/Creatinine Ratio 25, Glucose Level 99, Calcium Level 9.9, Corrected Calcium 10.1, Total Bilirubin 0.5, Aspartate Amino Transf (AST/SGOT) 17, Alanine Aminotransferase (ALT/SGPT) 9, Alkaline Phosphatase 95, Total Protein 6.5, Albumin 3.8 01/21/19 05:45: Urine Color YELLOW, Urine Clarity CLEAR, Urine pH 7.0, Urine Specific [place] 1.020, Urine Protein NEGATIVE, Urine Glucose (UA) NEGATIVE, Urine Ketones NEGATIVE, Urine Nitrite NEGATIVE, Urine Bilirubin NEGATIVE, Urine Urobilinogen 1.0, Urine Leukocyte Esterase NEGATIVE, Urine RBC (Auto) TRACE-I, Urine RBC 0-2, Urine WBC NONE, Urine Squamous Epithelial Cells 0-2, Urine Crystals PRESENT, Urine Amorphous Sediment FEW RONALDO URATES, Urine Bacteria NEGATIVE, Urine Casts NONE, Urine Mucus NEGATIVE, Urine Culture Indicated NO Discharge Home Medications: Active Scripts Active Hydrocodone/Acetaminophen 5/325mg Tablet (Acetaminophen/Hydrocodone Bitart) 1 Tab Tab 1-2 Tab PO Q4H PRN Reported Excedrin Extra Strength Caplet (Aspirin/Acetaminophen/Caffeine) 1 Each Tablet 1 Tab PO Q6H PRN Carisoprodol 350 Mg Tablet 350 Mg PO Q6H PRN Amitriptyline HCl 100 Mg Tablet 100 Mg PO HS Carbidopa-Levodopa 25-100 Tab (Carbidopa/Levodopa) 1 Each Tablet 0.5 Tab PO Q3H Armodafinil 250 Mg Tablet 250 Mg PO DAILY PRN Colace (Docusate Sodium) 100 Mg Capsule 100 Mg PO DAILY Multivitamins (Multivitamin) 1 Each Tablet 1 Tab PO DAILY Instructions to patient/family Please see electronic discharge instructions given to patient. Diagnosis/Problems Diagnosis/Problems (1) Radiculopathy, lumbar region (2) Parkinsons (3) Parkinson's disease with use of electrical brain stimulation (4) COPD (chronic obstructive pulmonary disease) (5) Smoker (6) GERD (gastroesophageal reflux disease) (7) Urinary retention (8) Constipation (9) Chronic pain (10) Cognitive deficit due to Parkinson's disease (11) Risk for falls (12) Moderately thin body habitus in adult Clinical Quality Measures DVT/VTE Risk/Contraindication: Risk Factor Score Per Nursin RFS Level Per Nursing on Admit: 4+=Very High ENMANUEL HARRIS DO Jan 24, 2019 10:17 POS
[2019-01-24 11:45] VITALS: BP 145/93
--- NOTE | 2019-01-24 11:45 | NUR ---
Pt is eager to return home w Significant other. Gait is noticeably improved today, S/O also noticed this, & verbalized the same.
--- NOTE | 2019-01-24 11:50 | Therapy Team Discharge Summary ---
Therapy Discharge Summary Discharge Recommendations Date of Discharge Occupational Therapy Pt admitted with dx of L5-S1 spinal fusion. Pt admitted with min A for feeding, min A bathing, max A UB/ mod A LB dressing tasks and max A for footwear doff/ donning. Pt and OT worked towards increased IND within ADLs through ADL training, AE education and training, UE strength/ endurance/ motor planning training. Pt d/c without reaching all geodesy teacher goals, but increased functional independence levels in many areas, including completing eating with IND, min A for bathing, min A for back brace/ UB dressing, SUP for LB dressing, and IND for toileting tasks. Pt to d/c home with spouse support, d/c OT services at this time. Impaired Self-Care Skills PT Steam Tank Operator Goals Half-Way Goals PT Steam Tank Operator Goals Time Frame: Feb 07, 2019 Roll Left to Right (QC): 4 Sit to Lying (QC): 4 Lying-Sitting on Side/Bed(QC): 4 Sit to Stand (QC): 4 Chair/Alr-et-Ufbfn Xfer(QC): 4 Car Transfer (QC): 4 Does the Patient Walk: Yes Distance: 350' Walk 10 feet (QC): 4 Walk 10ft-Uneven Surface(QC): 4 Walk 50ft with 2 Turns (QC): 4 Walk 150 ft (QC): 4 Gait Assistive Device: FWW Does the Pt use WC or Scooter?: No 1 Step (curb) (QC): 4 4 Steps (QC): 4 12 Steps (QC): 88 Picking up an Object (QC): 4 (CGA) OT Steam Tank Operator Goals Steam Tank Operator Goals Time Frame: Feb 14, 2019 Eating (QC): 6 (met) Oral Hygiene (QC): 6 (met) Shower/Bathe Self (QC): 5 Upper Body Dressing (QC): 6 Lower Body Dressing (QC): 6 On/Off Footwear (QC): 6 (met) Toileting Hygiene (QC): 6 (met) Toilet/Commode Transfer (QC): 6 Additional Goals: 1-Demonstrate ADL Tasks, 2-Verbalize Understanding, 3- ImproveStrength/Oniel 1=Demonstrate adherence to instructed precautions during ADL tasks. 2=Patient will verbalize/demonstrate understanding of assistive devices/modifications for ADL. 3=Patient will improve strength/tolerance for activity to enable patient to perform ADL's. Speech Steam Tank Operator Goals Steam Tank Operator Goals Patient will improve cognitive-communication necessary for safety and daily living tasks with minimal assist. Met SANYA SMALL OTR Jan 24, 2019 11:50 POS
--- NOTE | 2019-01-24 13:08 | NUR ---
Pt has follow-up appt w Dr. Stoll on @ 8:15. Significant other states.
--- NOTE | 2019-01-24 15:17 | NUR ---
Patient discharged today as planned with EMILY Platt. OP THERAPY: Coordinated with [facility], as planned. Faxed order and supportive therapy documentation for baseline. Facility and patient/caregiver to communicate with each other regarding scheduling. Discharge was detailed prior to today. Updated Unit staff of caregiver intention to arrive around 1130 so that patient could be ready. Witnessed patient leaving, very upbeat to go home.
--- NOTE | 2019-01-27 09:30 | NUR ---
At the request of [facility], provided their detailed therapy order signed by physician this date. Faxed with confirmation of receipt.
== END 2019-01-24 11:45 | disposition home or self-care (01) | DRG 552 ==
PROVIDERS: ADMIT Internal Medicine; ATTEND Internal Medicine
DX: M54.16 Radiculopathy, lumbar region (principal); Z47.89 Encounter for other orthopedic aftercare; G20 Parkinson's disease; F06.8 Other specified mental disorders due to known physiological condition; J44.9 Chronic obstructive pulmonary disease, unspecified; E87.1 Hypo-osmolality and hyponatremia; K21.9 Gastro-esophageal reflux disease without esophagitis; R33.9 Retention of urine, unspecified; Z66 Do not resuscitate; K59.09 Other constipation; F17.200 Nicotine dependence, unspecified, uncomplicated; G89.29 Other chronic pain; R32 Unspecified urinary incontinence; R39.15 Urgency of urination; N30.80 Other cystitis without hematuria; R15.9 Full incontinence of feces; F41.9 Anxiety disorder, unspecified; F32.9 Major depressive disorder, single episode, unspecified; E78.00 Pure hypercholesterolemia, unspecified; Z91.81 History of falling
CPT/HCPCS: 36415; 80053; 81000; 85025